=== PATIENT | female | born 1955 | race Caucasian/White ===

== ENCOUNTER → 2020-07-06 09:18 | Outpatient (BNVA) | payer OTHER, SELFPAY | PROVIDERS: Family Provider Family Medicine; Visit Provider Nurse Practitioner Family | DX: I10 Essential (primary) hypertension (principal); F41.1 Generalized anxiety disorder; F41.9 Anxiety disorder, unspecified; E78.5 Hyperlipidemia, unspecified | CPT/HCPCS: 80053; 80061 ==

== ENCOUNTER → 2021-05-03 09:55 | Outpatient (BNVA) | payer OTHER, SELFPAY | PROVIDERS: Family Provider Family Medicine; Visit Provider Nurse Practitioner Family | DX: I10 Essential (primary) hypertension (principal); F41.1 Generalized anxiety disorder; J32.9 Chronic sinusitis, unspecified; F41.9 Anxiety disorder, unspecified | CPT/HCPCS: 80053; 80061 ==

== ENCOUNTER → 2021-08-29 00:01 | Outpatient (BNVA) | payer OTHER, SELFPAY | PROVIDERS: Family Provider Family Medicine; Visit Provider Nurse Practitioner Family | DX: Z20.822 Contact with and (suspected) exposure to COVID-19 (principal); R05.9 Cough, unspecified | CPT/HCPCS: 87635 ==

== ENCOUNTER 2022-05-10 17:15 | Observation (INO) | payer MEDICARE, OTHER, SELFPAY ==
[2022-05-10 17:30] VITALS: BP 201/93; PULSE 76; RESP 18; TEMP 36.8; O2SAT 95
--- NOTE | 2022-05-10 17:40 | XR_ITS ---
WS: [id number] Portable AP upright chest, 05/10/2022 Clinical Data: throat sensation Comparison: None. Findings: No nodules, masses or effusions are seen. The heart is normal. The pulmonary vascularity is not increased. No pneumonia or pneumothorax is seen. The aortic arch and descending thoracic aorta s how mild tortuosity. The patient's clothing obscures minimal detail over the central chest. There is an old right third rib fracture. XR/XR chest 1V portable [id number] Impression: Atherosclerosis.
--- NOTE | 2022-05-10 21:40 | ED_ITS ---
HPI - General Adult General: Chief complaint: General Medical Stated complaint: Object in throat Time Seen by Provider: 05/10/22 21:36 History of Present Illness: 66-year-old female comes in today with probable esophageal obstruction due to meat. Patient yesterday at lunchtime she was eating a piece of meat and she felt a become lodged in her esophagus. Since then patient has been unable to swallow or hold down any fluids. Patient feels that there is an obstruction. Patient has had prior episodes where she has had difficulty swallowing but most often it goes down on its own. Patient had talked to her primary care provider who recommended she be evaluated in the ER with suspicion of obstruction of the esophagus due to food bolus. Review of Systems General: Reports: 10 or more systems reviewed and unremarkable except in HPI and below ENMT: Reports: other (difficulty swallowing) [facility] ED PFSH: Medical History Anxiety HTN (hypertension) Family History Father Hypertension CAD (coronary artery disease) Social History Smoking and tobacco status: never smoked Second hand smoke exposure: No Physical Exam Const: COMMON NORMALS: alert HENMT: COMMON NORMALS: normocephalic HEAD & SCALP: normocephalic Neck/C-Spine: COMMON NORMALS: full ROM Chest: COMMONS NORMALS: normal inspection of the chest Resp: COMMON NORMALS: normal respiratory effort and clear to auscultation bilaterally AUSCULTATION: clear to auscultation bilaterally Cardio: COMMON NORMALS: regular rate and regular rhythm RATE: regular rate RHYTHM: regular rhythm GI: COMMON NORMALS: Soft to palpation and non-tender PALPATION: Yes Soft to palpation : BLADDER/KIDNEY EXAM: Yes bladder normal to palpation BIMANUAL EXAM - VAGINA & UTERUS: Yes bladder normal to palpation Back/Pelvis: COMMON NORMALS: thoracic and lumbar spine normal to inspection Extremity: COMMON NORMALS: full ROM Neuro: SENSORIUM/ORIENTATION: Yes alert Skin: COMMON NORMALS: turgor normal GENERAL SKIN EXAM: turgor normal Course ED course: 2154, discussed patient with Dr. Wells, attending ER physician, who recommend I go ahead and talk to Dr. Lazar, general surgeon. Dr. Lazar recommended imaging to evaluate for obstruction and to admit for observation and he will evaluate in the morning as long as patient is stable with no signs of airway obstruction and management of secretions. 2304, trial of glucagon was unsuccessful patient continues to feel like there is an obstruction in her distal esophagus, was able to drink some water but then after some time she regurgitated it. Laboratory values were unremarkable. Except for some elevation in white blood cell count of 13.4. We are awaiting CT report. 0001, viewed CT with patient which showed hiatal hernia with possible retained food products or neoplasm/mass with recommendations of further evaluation with endoscopy. Patient reported understanding of care plan and need for further surgical evaluation with endoscopy. Patient will be placed in observation until surgical eval. Vital Signs: Vital signs: Vital Signs Temperature 98.2 F 05/10/22 17:30 Pulse Rate 74 05/10/22 22:01 Respiratory Rate 15 05/10/22 22:01 Blood Pressure 160/86 05/10/22 22:01 Pulse Oximetry 95 05/10/22 22:01 Oxygen Delivery Me thod 05/10/22 22:01 MDM - General Adult Medical Decision Making 66-year-old female comes in today for complaints of difficulty swallowing and holding down food. Patient stated yesterday she had eaten some chopped steak and since then has felt like there has been something lodged in her distal esophagus. On exam abdomen soft nontender. Patient is managing secretions well. Vital signs are normal except for some elevation in blood pressure. Differential diagnosis includes foreign body in the esophagus, ruptured esophagus, hiatal hernia. Laboratory values were unremarkable except for some mild leukocytosis at 13,000. CT of the abdomen pelvis noted a paraesophageal hiatal hernia with inflammation and possible retained food or neoplasm. I reviewed the patient with Dr. Lazar who agreed to evaluate patient in the morning for possible surgical endoscopy. Dr. Wells was consulted and agreed with plan. Lab Data : 05/10/22 22:15 05/10/22 22:15 Radiology Impressions Chest/Abdomen/Pelvis CT 05/10/22 21:53 IMPRESSION: A small paraesophageal hiatal hernia with eccentric wall thickening at the gastroesophageal junction. While this may simply represent the esophagus adjacent to the herniated stomach, wall thickening secondary to neoplasm or small piece of retained food contents may present a similar picture. Given the patient's symptoms and the presence of multiple mediastinal lymph nodes (although normal in size and mildly enlarged), consider endoscopy if clinically indicated. IMPRESSION: 1. No acute findings. 2. A small paraesophageal hiatal hernia as discussed in the concomitant CT scan of the chest of 05/10/2022. 3. Hepatic steatosis. 4. Mild descending colon and sigmoid diverticulosis without acute diverticulitis. 6. Additional non emergent findings as above COMMENTS: Consistent with the [employer] [place] [employer]'s Incidental Findings Committee white paper (J Am Luisito Radiol 2018): Any incidental renal lesion less than 1 cm or classified as too small to characterize, or any incidental cystic renal lesion characterized as simple-appearing, is likely benign. No follow-up imaging is recommended for these lesions per consensus recommendations based on imaging criteria. ADDENDUM: 05/10/22 2358 Findings were discussed with MARISOL LITTLE at 05/10/2022 11:57 PM CDT. Laboratory Results WBC 13.4 10^3/uL (4.0-10.0) H 05/10/22 22:15 RBC 4.93 10^6/uL (4.1-5.3) 05/10/22 22:15 Hgb 15.1 g/dL (11.5-15.3) 05/10/22 22:15 Hct 44.8 % (37.0-47.0) 05/10/22 22:15 MCV 90.9 fl (81-99) 05/10/22 22:15 MCH 30.6 pg (28.0-34.0) 05/10/22 22:15 MCHC 33.7 g/dL (30.0-36.0) 05/10/22 22:15 RDW 13.6 % (12.1-15.1) 05/10/22 22:15 Plt Count 386 10^3/cmm (130-400) 05/10/22 22:15 MPV 9.7 fL (7.4-10.4) 05/10/22 22:15 Neut % (Auto) 68.5 % 05/10/22 22:15 Lymph % (Auto) 22.0 % 05/10/22 22:15 Rawl[place] % (Auto) 7.1 % 05/10/22 22:15 Eos % (Auto) 1.3 % 05/10/22 22:15 Baso % (Auto) 0.7 % 05/10/22 22:15 Neut # (Auto) 9.18 10^3/uL (1.8-7.7) H 05/10/22 22:15 Lymph # (Auto) 3.0 10^3/uL (0.8-4.8) 05/10/22 22:15 [place] # (Auto) 1.0 10^3/uL (0.2-0.9) H 05/10/22 22:15 Eos # (Auto) 0.2 10^3/uL (0.0-0.8) 05/10/22 22:15 Baso # (Auto) 0.1 10^3/uL (0.0-0.1) 05/10/22 22:15 Nucleated RBC % (auto) 0 % 05/10/22 22:15 Nucleated RBCs # 0.0 /100WBC 05/10/22 22:15 Sodium 143 mmol/L (136-145) 05/10/22 22:15 Potassium 3.5 mmol/L (3.5-5.1) 05/10/22 22:15 Chloride 103 mmol/L (98-107) 05/10/22 22:15 Carbon Dioxide 27 mmol/L (22-29) 05/10/22 22:15 Anion Gap 16.5 (5-19) 05/10/22 22:15 BUN 13 mg/dL (8-23) 05/10/22 22:15 Creatinine 0.8 mg/dL (0.5-0.9) 05/10/22 22:15 GFR Calculation 72.0 mL/min (90-130) L 05/10/22 22:15 Glucose 96 mg/dL (65-115) 05/10/22 22:15 Calculated Osmolality 296 mOsm/kg (285-295) H 05/10/22 22:15 Calcium 9.7 mg/dL (8.5-10.5) 05/10/22 22:15 Total Bilirubin 1.0 mg/dL (0.15-1.2) 05/10/22 22:15 AST 26 U/L (0-32) 05/10/22 22:15 ALT 26 U/L (0-33) 05/10/22 22:15 Alkaline Phosphatase 87 U/L (35-105) 05/10/22 22:15 Troponin T Gen 5 ng/L 10 ng/L (0-10) 05/10/22 22:15 Total Protein 8.6 g/dL (6.6-8.7) 05/10/22 22:15 Albumin 4.3 g/dL (3.5-5.2) 05/10/22 22:15 Globulin 4.3 g/dL (1.3-4.6) 05/10/22 22:15 Discharge Plan Discharge Condition: Stable Prescriptions: No Action hydrochlorothiazide 50 mg tablet 50 mg PO DAILY Qty: 90 1RF citalopram 20 mg tablet See Rx Instructions .ROUTE .COMPLEX Qty: 90 0RF Dose Instruction: Take 1 tablet by mouth once daily Rx Instructions: Take 1 tablet by mouth once daily Referrals: James Garcia MD [Primary Care Provider] - Coding Level of Care Code ED Personnel Clerks Supervisor for Chg Fwd Exam Comprehensive
--- NOTE | 2022-05-10 21:53 | CTR_ITS ---
PROCEDURE INFORMATION: Exam: CT Chest With Contrast; Diagnostic Exam date and time: 05/10/2022 10:19 PM Age: 66 years old Clinical indication: Other: Foreign body; Prior surgery; Surgery type: Hysterectomy; Patient HX: Patient states feels like there is a piece of food stuck in distal esophagus. Unable to keep anything down. ; Additional info: Esophageal foreign body TECHNIQUE: Imaging protocol: Diagnostic computed tomography of the chest with contrast. Radiation optimization: All CT scans at this facility use at least one of these dose optimization techniques: automated exposure control; mA and/or kV adjustment per patient size (includes targeted exams where dose is matched to clinical indication); or iterative reconstruction. Contrast material: OMNI 350; Contrast volume: 80 ml; Contrast route: INTRAVENOUS (IV); COMPARISON: CR XR chest 1V portable [id number] 05/10/2022 9:41 PM RADIATION DOSE METRICS: Total DLP (mGy-cm): 798.73 FINDINGS: Lungs: There is no focal pulmonary consolidation. No lung masses are identified. Pleural spaces: Unremarkable. No pneumothorax. No pleural effusion. Heart: There are no pericardial fluid collections. Esophagus: No esophageal thickening. Mediastinal space: See Diaphragm finding. Lymph nodes: There are multiple nonenlarged and borderline prominent mediastinal lymph nodes, as large as 12 mm. This 12 mm lymph node in the aortopulmonary window, is abutting the anterolateral aspect of the esophagus. The bilateral hilar normal size and borderline prominent lymph nodes as large as 10 mm. Vasculature: Unremarkable. No aortic aneurysm. Diaphragm: There is a small paraesophageal hiatal hernia. There is no esophageal dilatation or evidence of obstruction. However, there is eccentric thickening of the wall of the herniated gastroesophageal junction (series 3, image 53; series 7, images 28 and 29; series 8, images 32 - 35). Liver: No enhancing masses are seen. Bones/joints: Unremarkable. No acute fracture. Soft tissues: Unremarkable. PROCEDURE INFORMATION: Exam: CT Abdomen And Pelvis With Contrast Exam date and time: 05/10/2022 10:19 PM Age: 66 years old Clinical indication: Other: Foreign body; Prior surgery; Surgery type: Hysterectomy; Patient HX: Patient states feels like there is a piece of food stuck in distal esophagus. Unable to keep anything down. ; Additional info: Esophageal foreign body TECHNIQUE: Imaging protocol: Computed tomography of the abdomen and pelvis with contrast. Radiation optimization: All CT scans at this facility use at least one of these dose optimization techniques: automated exposure control; mA and/or kV adjustment per patient size (includes targeted exams where dose is matched to clinical indication); or iterative reconstruction. Contrast material: OMNI 350; Contrast volume: 80 ml; Contrast route: INTRAVENOUS (IV); COMPARISON: CR XR chest 1V portable [id number] 05/10/2022 9:41 PM RADIATION DOSE METRICS: Total DLP (mGy-cm): 798.73 FINDINGS: Lungs: No consolidation in the visualized lung bases. Diaphragm: There is a small paraesophageal hiatal hernia with eccentric wall thickening as described on the concomitant CT scan of the chest of 05/10/2022. Liver: The liver is normal in size. There is a patent steatosis. Gallbladder and bile ducts: No calcified stones. No ductal dilation. Pancreas: Normal in size and homogeneous enhancement. No ductal dilation. Spleen: Normal. No splenomegaly. Adrenal glands: Normal. No mass. Kidneys and ureters: There is no hydronephrosis. No renal or ureteral calculi are identified. In the right kidney, there is a 13 mm simple appearing cyst. Stomach and bowel: There is no evidence of small bowel or colonic obstruction. There is mild diverticulosis of the distal colon without acute diverticulitis. Appendix: A normal retrocecal appendix is identified. Intraperitoneal space: No free air. No significant fluid collection. Vasculature: There is mild atherosclerotic calcification of the abdominal aorta and its branches without aneurysm Lymph nodes: No enlarged retroperitoneal or mesenteric lymph nodes. Urinary bladder: The bladder is mostly decompressed. No bladder stones are identified. Reproductive: The uterus is not identified and is likely surgically absent or atrophic. Bones/joints: At L2-L3, there are severe degenerative disc disease, anterior and lateral osteophytes and posterior bony whiskering with moderate bilateral neural foraminal narrowing. Soft tissues: Normal. CT/CT chest abd pel w con* IMPRESSION: A small paraesophageal hiatal hernia with eccentric wall thickening at the gastroesophageal junction. While this may simply represent the esophagus adjacent to the herniated stomach, wall thickening secondary to neoplasm or small piece of retained food contents may present a similar picture. Given the patient's symptoms and the presence of multiple mediastinal lymph nodes (although normal in size and mildly enlarged), consider endoscopy if clinically indicated. IMPRESSION: 1. No acute findings. 2. A small paraesophageal hiatal hernia as discussed in the concomitant CT scan of the chest of 05/10/2022. 3. Hepatic steatosis. 4. Mild descending colon and sigmoid diverticulosis without acute diverticulitis. 6. Additional non emergent findings as above COMMENTS: Consistent with the [place] [employer]'s Incidental Findings Committee white paper (J Am Luisito Radiol 2018): Any incidental renal lesion less than 1 cm or classified as too small to characterize, or any incidental cystic renal lesion characterized as simple-appearing, is likely benign. No follow-up imaging is recommended for these lesions per consensus recommendations based on imaging criteria.
[2022-05-10 21:58] VITALS: BP 185/99; PULSE 76; RESP 15; O2SAT 96
[2022-05-10 22:01] VITALS: BP 160/86; PULSE 74; RESP 15; O2SAT 95
[2022-05-10] MEDS: sodium chloride 0.9% 500 ML 999 ML IV (22:11)
--- NOTE | 2022-05-10 22:15 | PC.NURSE ---
Patient alert/oriented, vss, reports feeling something stuck in esophagus since yesterday, able to swallow own secretions, talking without difficulty. and daughter at bedside.
[2022-05-10 22:23] LABS: Basophils # 0.1 10^3/uL (0.0-0.1); Basophils % 0.7 %; Eosinophils # 0.2 10^3/uL (0.0-0.8); Eosinophils % 1.3 %; Hematocrit 44.8 % (37.0-47.0); Hemoglobin 15.1 g/dL (11.5-15.3); Mean Corpuscular HGB Conc 33.7 g/dL (30.0-36.0); Mean Corpuscular Hemoglobin 30.6 pg (28.0-34.0); Mean Corpuscular Volume 90.9 fl (81-99); Mean Platelet Volume 9.7 fL (7.4-10.4); Monocytes % 7.1 %; Neutrophils # 9.18 10^3/uL (1.8-7.7); Neutrophils % 68.5 %; Nucleated Red Blood Cells % 0 %; Platelet Count 386 10^3/cmm (130-400); Red Blood Count 4.93 10^6/uL (4.1-5.3); Red Cell Distribution Width 13.6 % (12.1-15.1); White Blood Count 13.4 10^3/uL (4.0-10.0)
[2022-05-10] MEDS: iohexol 350 mg/mL 100 mL Btl IV (22:26)
[2022-05-10 22:38] LABS: Alanine Aminotransferase 26 U/L (0-33); Albumin Level 4.3 g/dL (3.5-5.2); Alkaline Phosphatase 87 U/L (35-105); Anion Gap 16.5 (5-19); Aspartate Amino Transferase 26 U/L (0-32); Blood Urea Nitrogen 13 mg/dL (8-23); Calcium 9.7 mg/dL (8.5-10.5); Carbon Dioxide 27 mmol/L (22-29); Chloride 103 mmol/L (98-107); Creatinine Clr Calc Pharmacy 71.0277; Globulin 4.3 g/dL (1.3-4.6); Glucose 96 mg/dL (65-115); Osmolality Calculated 296 mOsm/kg (285-295); Potassium 3.5 mmol/L (3.5-5.1); Sodium 143 mmol/L (136-145); Total Protein 8.6 g/dL (6.6-8.7)
[2022-05-10 22:39] LABS: Troponin T (5th) Once 10 ng/L (0-10)
--- NOTE | 2022-05-10 23:00 | ECG_ITS ---
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 Measurements Intervals [place] Rate: 72 P: -4 [place]: 136 QRS: 30 QRSD: 85 T: 60 QT: 289 QTc: 317 Interpretive Statements SINUS RHYTHM NONSPECIFIC ST & T-WAVE ABNORMALITY No previous ECG available for comparison Electronically Signed On 05-12-2022 14:36:38 CDT by Familia Donnelly M.D. [id number]
[2022-05-11 00:57] VITALS: BP 134/66; PULSE 77; RESP 20; O2SAT 96
[2022-05-11] MEDS: ondansetron 2 mg/ML SDV 2 mL 4 MG IVP (01:19)
[2022-05-11] MEDS: sodium chloride 0.9% 1,000 ML 75 ML IV (01:25)
[2022-05-11 01:48] VITALS: BMI 23.5
[2022-05-11 10:05] VITALS: BP 170/85; PULSE 75; RESP 16; TEMP 36.3; O2SAT 96
[2022-05-11] MEDS: sodium chloride 0.9% 1,000 ML 30 ML IV (10:21)
[2022-05-11 10:46] VITALS: O2SAT 96
--- NOTE | 2022-05-11 11:08 | ANES.PREANE2 ---
Pre-Anesthetic Assessment Height/Weight: Height 1.7 m Weight 68.039 kg Temp Pulse Resp BP Pulse Ox O2 Del Method 97.4 F L 75 16 170/85 96 05/11/22 10:05 05/11/22 10:05 05/11/22 10:05 05/11/22 10:05 05/11/22 10:46 05/11/22 10:46 Preop Diagnosis: possible foreign body Operation Date: 05/11/22 10:15 Proposed Procedures p EGD WITH POSSIBLE FOREIGN BODY REMOVAL(Not Applicable) - Julian Lazar DO Last intake: Intake Last Liquid Date 05/10/22 Last Liquid Time 00:00 Last Solid Date 05/09/22 Last Solid Time 12:00 Social No alcohol and No tobacco Exam alert, oriented x 3, clear to auscultation bilaterally and regular rate & rhythm Airway Submandibular: within normal limits Cervical ROM: within normal limits Mallampati: Class II Dentition: other (dentures, removed) History/ROS No significant history except as noted Pulmonary None reported CV/HEM Hypertension cardiology workup 5 years ago - cleared None reported Hepatic None reported GI Hiatal Hernia Metabolic None reported Musc/skel None reported Neuropsych Anxiety Anesthetic Plan ASA status: 2 Anesthesia: Anesthesia Evaluation and General Risk of > 500 ml blood loss (7ml/kg in children): Yes, adequate IV access and fluids planned Medications/Allergies Home Medications Medication Instructions Recorded Confirmed Last Taken Type hydrochlorothiazide 50 mg tablet 50 mg PO DAILY #90 tabs 05/03/21 05/11/22 Unknown Rx citalopram 20 mg tablet See Rx Instructions .Route 12/08/21 05/11/22 Unknown Rx .COMPLEX #90 tabs Allergies Allergy/AdvReac Type Severity Reaction Status Date / Time No Known Allergies Allergy Verified 05/10/22 15:31 Current Medications Generic Name Dose Route Start Last Admin Trade Name Joseq PRN Reason Stop Dose Admin Sodium Chloride 1,000 mls @ 75 mls/hr 05/11/22 00:57 05/11/22 01:25 Sodium Chloride 0.9% IV 75 mls/hr .[id number] VAL Administration Sodium Chloride 1,000 mls @ 30 mls/hr 05/11/22 10:15 05/11/22 10:21 Sodium Chloride 0.9% IV 05/12/22 10:14 30 mls/hr .Q24H VAL Administration Ondansetron HCl 4 mg 05/11/22 00:57 05/11/22 01:19 Ondansetron 2 Mg/Ml Sdv 2 Ml IVP 4 mg Q6H PRN Administration NAUSEA AND VOMITING PFSH Anesthesia Medical History Anxiety HTN (hypertension) Family History Father Hypertension CAD (coronary artery disease) Social History Smoking and tobacco status: never smoked Second hand smoke exposure: No Data Anesthesia : 05/10/22 22:15 05/10/22 22:15 Short CBC 05/10/22 Range/Units 22:15 WBC 13.4 H (4.0-10.0) 10^3/uL Hgb 15.1 (11.5-15.3) g/dL Hct 44.8 (37.0-47.0) % MCV 90.9 (81-99) fl Plt Count 386 (130-400) 10^3/cmm Neut % (Auto) 68.5 % Neut # (Auto) 9.18 H (1.8-7.7) 10^3/uL BMP 05/10/22 22:15 Sodium 143 Potassium 3.5 Chloride 103 Carbon Dioxide 27 BUN 13 Creatinine 0.8 Glucose 96 Calcium 9.7 Cardiac Enzymes 05/10/22 Range/Units 22:15 Troponin T Gen 5 ng/L 10 (0-10) ng/L Liver Function 05/10/22 Range/Units 22:15 Total Bilirubin 1.0 (0.15-1.2) mg/dL AST 26 (0-32) U/L ALT 26 (0-33) U/L Alkaline Phosphatase 87 (35-105) U/L Albumin 4.3 (3.5-5.2) g/dL Cardiac Studies: No Data to Display
--- NOTE | 2022-05-11 11:09 | PM.HP ---
Providers/Chief Complaint Admitting Physician: Julian Lazar DO Primary Care Provider: James Garcia MD Chief Complaint: Object in throat History of Present Illness Luisana Torres is a 66 year old female who presented to the hospital 36 hours after eating steak for lunch and having feeling of it being stuck in the bottom of her throat. She reports that she gets this feeling about every 3 months and that usually she can just vomited up. However that did not happen this time. She has some mild epigastric sharp pain that radiates through to her back. Nothing seems to make the pain better or worse. She has been able to keep down her saliva. She had a CT which showed possible object versus just inflammation of the GE junction along with a paraesophageal hernia containing stomach. She denies any nausea or vomiting. Denies any diarrhea or constipation. Denies any hematochezia and/or melena. Review of Systems General: Reports: 10 or more systems reviewed and unremarkable except in HPI and below Medications/Allergies Home Medications Medication Instructions Recorded Confirmed Last Taken Type hydrochlorothiazide 50 mg tablet 50 mg PO DAILY #90 tabs 05/03/21 05/11/22 Unknown Rx citalopram 20 mg tablet See Rx Instructions .Route 12/08/21 05/11/22 Unknown Rx .COMPLEX #90 tabs Allergies Allergy/AdvReac Type Severity Reaction Status Date / Time No Known Allergies Allergy Verified 05/10/22 15:31 PFSH Acute PFSH: Medical History Anxiety HTN (hypertension) Family History Father Hypertension CAD (coronary artery disease) Social History Smoking and tobacco status: never smoked Second hand smoke exposure: No Vitals/I&O/Wt Last Vital Signs Temp 97.4 F L 05/11/22 10:05 Pulse 75 05/11/22 10:05 Resp 16 05/11/22 10:05 BP 170/85 05/11/22 10:05 Pulse Ox 96 05/11/22 10:46 O2 Del Method 05/11/22 10:46 05/10/22 05/11/22 05/11/22 22:59 06:59 14:59 Intake Total 500 / 500 Balance 500 / 500 Weight last 48 hrs Weight 150 lb Weight 150 lb Physical Exam Narrative: General : Patient is well developed , no acute distress, oriented x3 Head : Normal cephalic, a-traumatic. Ears : Pinnae and external canal are normal. Hearing is normal. Eyes : PERRLA, Sclera and injection are normal. No conjunctival discharge. Nose : Mucous membranes are without erythema. Throat : buccal mucosa is normal, gums are without significant recession or hypertrophy. Lungs : Equal chest rise bilaterally, no use of accessory muscles, trachea is midline. Cor : Rate and rhythm are normal. Abdomen : Soft, ND, NT, no g/r/m Extremities : No edema, no cyanosis or clubbing, dorsalis pedis pulses are present bilaterally, non-tender to palpation of calves. Upper extremities are normal bilaterally. Back : non-tender to palpation, no CVA tenderness. Neuro : CN II - XII intact, Upper and lower extremities have equal and full strength Data : 05/10/22 22:15 05/10/22 22:15 A&P Assessment and plan (1) Food impaction of esophagus: Status: Acute Qualifiers: Encounter type: initial encounter Qualified Code(s): T18.128A - Food in esophagus causing other injury, initial encounter (2) Hiatal hernia without gangrene and obstruction: Status: Acute Plan EGD The risks and benefits of the procedure, including bleeding, infection, intestinal perforation requiring surgery, missed lesion, or explained to the patient. She is understanding of the risks and wishes to proceed. Attestations Medical Necessity Statement*: Patient may be discharged home after the procedure. Depends on the results of the procedure. 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
[2022-05-11 12:26] VITALS: BP 175/83; PULSE 93; RESP 16; TEMP 36.6; O2SAT 96
[2022-05-11 12:37] VITALS: BP 147/80; PULSE 85; RESP 16; O2SAT 96
--- NOTE | 2022-05-11 12:44 | P.DS_ITS ---
Discharge Providers Date of Admission: 05/11/22 00:00 Date of Discharge: May 11, 2022 Attending Provider at Admission: Julian Lazar DO Attending Provider at Discharge: Julian Lazar DO Primary Care Provider: James Garcia MD Diagnoses at Discharge Discharge Diagnosis (1) Food impaction of esophagus: Status: Acute Qualifiers: Encounter type: initial encounter Qualified Code(s): T18.128A - Food in esophagus causing other injury, initial encounter (2) Hiatal hernia without gangrene and obstruction: Status: Acute Reason for Visit Reason for Visit: Object in throat Hospital Course Hospital Course Patient came in for food impaction 36 hours after eating steak. EGD was performed and no impaction was seen. Biopsy was taken of an inflamed GE junction. She was discharged home in good condition. Physical Exam Narrative: Gen: NAD Abd: S, NT, ND Discharge Data Studies Completed and Pending Completed Studies During Hospitalization Category Date Time Status CT chest abd pel w con* Stat Cat Scan 05/10/22 21:53 Completed XR chest 1V portable [id number] Stat Exams 05/10/22 17:40 Completed Pending at discharge Category Date Time Status Pathology: Surgical [PTH] Routine Pth 05/11/22 12:23 Ordered Radiology Impressions Chest X-Ray 05/10/22 17:40 Impression: Atherosclerosis. Chest/Abdomen/Pelvis CT 05/10/22 21:53 IMPRESSION: A small paraesophageal hiatal hernia with eccentric wall thickening at the gastroesophageal junction. While this may simply represent the esophagus adjacent to the herniated stomach, wall thickening secondary to neoplasm or small piece of retained food contents may present a similar picture. Given the patient's symptoms and the presence of multiple mediastinal lymph nodes (although normal in size and mildly enlarged), consider endoscopy if clinically indicated. IMPRESSION: 1. No acute findings. 2. A small paraesophageal hiatal hernia as discussed in the concomitant CT scan of the chest of 05/10/2022. 3. Hepatic steatosis. 4. Mild descending colon and sigmoid diverticulosis without acute diverticulitis. 6. Additional non emergent findings as above COMMENTS: Consistent with the [employer]'s Incidental Findings Committee white paper (J Am Luisito Radiol 2018): Any incidental renal lesion less than 1 cm or classified as too small to characterize, or any incidental cystic renal lesion characterized as simple-appearing, is likely benign. No follow-up imaging is recommended for these lesions per consensus recommendations based on imaging criteria. ADDENDUM: 05/10/22 2358 Findings were discussed with MARISOL LITTLE at 05/10/2022 11:57 PM CDT. Laboratory Results WBC 13.4 10^3/uL (4.0-10.0) H 05/10/22 22:15 RBC 4.93 10^6/uL (4.1-5.3) 05/10/22 22:15 Hgb 15.1 g/dL (11.5-15.3) 05/10/22 22:15 Hct 44.8 % (37.0-47.0) 05/10/22 22:15 MCV 90.9 fl (81-99) 05/10/22 22:15 MCH 30.6 pg (28.0-34.0) 05/10/22 22:15 MCHC 33.7 g/dL (30.0-36.0) 05/10/22 22:15 RDW 13.6 % (12.1-15.1) 05/10/22 22:15 Plt Count 386 10^3/cmm (130-400) 05/10/22 22:15 MPV 9.7 fL (7.4-10.4) 05/10/22 22:15 Neut % (Auto) 68.5 % 05/10/22 22:15 Lymph % (Auto) 22.0 % 05/10/22 22:15 [place] % (Auto) 7.1 % 05/10/22 22:15 Eos % (Auto) 1.3 % 05/10/22 22:15 Baso % (Auto) 0.7 % 05/10/22 22:15 Neut # (Auto) 9.18 10^3/uL (1.8-7.7) H 05/10/22 22:15 Lymph # (Auto) 3.0 10^3/uL (0.8-4.8) 05/10/22 22:15 [place] # (Auto) 1.0 10^3/uL (0.2-0.9) H 05/10/22 22:15 Eos # (Auto) 0.2 10^3/uL (0.0-0.8) 05/10/22 22:15 Baso # (Auto) 0.1 10^3/uL (0.0-0.1) 05/10/22 22:15 Nucleated RBC % (auto) 0 % 05/10/22 22:15 Nucleated RBCs # 0.0 /100WBC 05/10/22 22:15 Sodium 143 mmol/L (136-145) 05/10/22 22:15 Potassium 3.5 mmol/L (3.5-5.1) 05/10/22 22:15 Chloride 103 mmol/L (98-107) 05/10/22 22:15 Carbon Dioxide 27 mmol/L (22-29) 05/10/22 22:15 Anion Gap 16.5 (5-19) 05/10/22 22:15 BUN 13 mg/dL (8-23) 05/10/22 22:15 Creatinine 0.8 mg/dL (0.5-0.9) 05/10/22 22:15 GFR Calculation 72.0 mL/min (90-130) L 05/10/22 22:15 Glucose 96 mg/dL (65-115) 05/10/22 22:15 Calculated Osmolality 296 mOsm/kg (285-295) H 05/10/22 22:15 Calcium 9.7 mg/dL (8.5-10.5) 05/10/22 22:15 Total Bilirubin 1.0 mg/dL (0.15-1.2) 05/10/22 22:15 AST 26 U/L (0-32) 05/10/22 22:15 ALT 26 U/L (0-33) 05/10/22 22:15 Alkaline Phosphatase 87 U/L (35-105) 05/10/22 22:15 Troponin T Gen 5 ng/L 10 ng/L (0-10) 05/10/22 22:15 Total Protein 8.6 g/dL (6.6-8.7) 05/10/22 22:15 Albumin 4.3 g/dL (3.5-5.2) 05/10/22 22:15 Globulin 4.3 g/dL (1.3-4.6) 05/10/22 22:15 Vitals Last Vital Signs Temp 97.8 F 05/11/22 12:26 Pulse 85 05/11/22 12:37 Resp 16 05/11/22 12:37 BP 147/80 05/11/22 12:37 Pulse Ox 96 05/11/22 12:37 O2 Del Method 05/11/22 12:37 Discharge Plan Discharge Patient Disposition: Home Condition: Stable Prescriptions: Continued hydrochlorothiazide 50 mg tablet 50 mg PO DAILY Qty: 90 1RF citalopram 20 mg tablet See Rx Instructions .ROUTE .COMPLEX Qty: 90 0RF Dose Instruction: Take 1 tablet by mouth once daily Rx Instructions: Take 1 tablet by mouth once daily Discharge Orders: Discharge Order (Routine); Ordered 05/11/22 Ordered By: Julian Lazar Referrals: Julian Lazar DO [Physician] - 2 weeks (tele in 2 weeks and office in one month) James Garcia MD [Primary Care Provider] - 4-7 days Discharge Diet: As Directed Discharge Activity: Resume usual activity Patient Instructions: GI Discharge Instructions, Opioid Safety Activity Restrictions/Additional Instructions: Liquid diet for 2 days and then no steak for 2 weeks Discharge Attestations Time Spent in Discharge Care*: less than 30 min Quality Metrics Clinical Quality Measures [ No reported AMI, CVA or VTE this stay] Coding Level of Care Code Acute Chg FW DC note Diagnoses Food impaction of esophagus T18.128A Encounter type: initial encounter Hiatal hernia without gangrene and obstruction K44.9
[2022-05-11 14:49] VITALS: BP 147/80; PULSE 85; RESP 16; O2SAT 96
== END 2022-05-11 15:00 | disposition home or self-care (01) ==
LOC: ER 21:40 → MEDSURG 05-11 00:15
PROVIDERS: Admitting Provider Surgery; Emergency Provider Nurse Practitioner Family; PCP Family Medicine; Visit Provider Surgery
PROC: 0DJ08ZZ Inspection of Upper Intestinal Tract, Via Natural or Artificial Opening Endoscopic (ICD-10-PCS; CPT 43235; principal; 2022-05-11 10:15)
DX: T18.128A Food in esophagus causing other injury, initial encounter (principal); K44.9 Diaphragmatic hernia without obstruction or gangrene; I10 Essential (primary) hypertension
CPT/HCPCS: 43239; 71045; 71260; 74177; 80053; 84484; 85025; 88305; 93005; 96361; 96374; 99285; G0378; J0330; J1100; J1610; J2405; J2704; J7030; J7040; Q9967

== ENCOUNTER → 2022-05-23 14:18 | Outpatient (BNVA) | payer MEDICARE, OTHER, SELFPAY | PROVIDERS: PCP Family Medicine; Visit Provider Surgery | DX: K21.9 Gastro-esophageal reflux disease without esophagitis (principal) | CPT/HCPCS: 99212 ==

== ENCOUNTER → 2022-06-05 07:45 | Outpatient (BNVA) | payer MEDICARE, OTHER, SELFPAY | PROVIDERS: PCP Nurse Practitioner Family; Visit Provider Surgery | DX: K21.9 Gastro-esophageal reflux disease without esophagitis (principal); T18.108A Unspecified foreign body in esophagus causing other injury, initial encounter; X58.XXXA Exposure to other specified factors, initial encounter | CPT/HCPCS: 99203 ==

== ENCOUNTER 2022-06-28 09:05 | Day surgery (SDC) | payer MEDICARE, OTHER, SELFPAY ==
[2022-06-26 11:37] VITALS: BMI 23.5
[2022-06-28 09:33] VITALS: BP 170/112; PULSE 72; RESP 18; TEMP 36.8; O2SAT 98
[2022-06-28] MEDS: sodium chloride 0.9% 1,000 ML 30 ML IV (09:50)
--- NOTE | 2022-06-28 11:33 | W.PM.OPSUD ---
Surgery/Procedure H&P Update DATE OF PROCEDURE: June 28, 2022 DATE H&P PERFORMED: 06/05/22 PREOP DIAGNOSIS: dysphagia PLANNED PROCEDURE: Operation Date: 06/28/22 10:45 Proposed Procedures p EGD Dilation W/ Balloon [id number],K21.9(Not Applicable) - Julian Lazar DO
--- NOTE | 2022-06-28 11:36 | ANES.PREANE2 ---
Pre-Anesthetic Assessment Height/Weight: Height 1.7 m Weight 68.039 kg Temp Pulse Resp BP Pulse Ox O2 Del Method 98.2 F 72 18 170/112 98 06/28/22 09:33 06/28/22 09:33 06/28/22 09:33 06/28/22 09:33 06/28/22 09:33 06/28/22 09:33 Preop Diagnosis: dysphagia Operation Date: 06/28/22 10:45 Proposed Procedures p EGD Dilation W/ Balloon 33212,K21.9(Not Applicable) - Julian Lazar DO Familial anesthetic complications: None Was Beta Tom taken within 24 hours: N/A Was Clonidine taken within 24 hours: N/A Last intake: Intake Last Liquid Date 06/27/22 Last Liquid Time 23:00 Last Solid Date 06/27/22 Last Solid Time 23:00 Social No alcohol and No tobacco Exam alert, oriented x 3, clear to auscultation bilaterally and regular rate & rhythm Airway Submandibular: within normal limits Cervical ROM: within normal limits Mallampati: Class II Dentition: false History/ROS No significant history except as noted Pulmonary None reported CV/HEM Hypertension None reported Hepatic None reported GI Gastroesophageal Reflux Disease Metabolic None reported Musc/skel None reported Neuropsych None reported Anesthetic Plan ASA status: 2 Anesthesia: Anesthesia Evaluation Risk of > 500 ml blood loss (7ml/kg in children): No Medications/Allergies Home Medications Medication Instructions Recorded Confirmed Last Taken Type lisinopril 5 mg tablet 5 mg PO DAILY #90 tabs 05/16/22 06/28/22 06/27/22 Rx hydrochlorothiazide 50 mg tablet 50 mg PO DAILY #90 tabs 05/19/22 06/28/22 06/27/22 Rx pantoprazole 40 mg tablet,delayed 40 mg PO BID 6 weeks #84 tabs 05/23/22 06/28/22 06/27/22 Rx release (Protonix) citalopram 20 mg tablet 20 mg PO DAILY 06/26/22 06/28/22 06/27/22 History Allergies Allergy/AdvReac Type Severity Reaction Status Date / Time No Known Allergies Allergy Verified 06/28/22 09:31 Current Medications Generic Name Dose Route Start Last Admin Trade Name Freq PRN Reason Stop Dose Admin Sodium Chloride 1,000 mls @ 30 mls/hr 06/28/22 09:30 06/28/22 09:50 Sodium Chloride 0.9% IV 06/29/22 09:29 30 mls/hr .Q24H VAL Administration PFSH Anesthesia Medical History Anxiety GERD (gastroesophageal reflux disease) HTN (hypertension) Family History Father Hypertension CAD (coronary artery disease) Social History Smoking and tobacco status: never smoked Second hand smoke exposure: No Data Anesthesia Cardiac Studies: No Data to Display
--- NOTE | 2022-06-28 11:52 | PC.NURSE ---
BALLOON DIALTAION 18, 19 AND 20
[2022-06-28 11:57] VITALS: BP 134/75; PULSE 76; RESP 18; TEMP 36.2; O2SAT 97
[2022-06-28 12:09] VITALS: BP 126/79; PULSE 60; RESP 18; TEMP 36.3; O2SAT 95
--- NOTE | 2022-06-28 17:44 | ANE.PACU2 ---
Inpatient post-anesthesia follow up: Airway intact: Yes Vital signs: Temperature 97.3 F Pulse Rate 60 Respiratory Rate 18 Blood Pressure 126/79 Pulse Oximetry 95 Oxygen Delivery Me thod Room Air Oxygen Flow Rate Fraction of Inspir ed Oxygen Hydration adequate: Yes Nausea and vomiting: No Pain level: 1 Mental status: Baseline
== END 2022-06-28 12:30 | disposition home or self-care (01) ==
PROVIDERS: PCP Nurse Practitioner Family; Visit Provider Surgery
DX: K21.9 Gastro-esophageal reflux disease without esophagitis (principal); K29.50 Unspecified chronic gastritis without bleeding; B96.81 Helicobacter pylori [H. pylori] as the cause of diseases classified elsewhere; K22.2 Esophageal obstruction; K44.9 Diaphragmatic hernia without obstruction or gangrene
CPT/HCPCS: 43239; 43249; 88305; J2704; J7030

== ENCOUNTER → 2022-07-11 15:35 | Outpatient (BNVA) | payer MEDICARE, OTHER, SELFPAY | PROVIDERS: PCP Nurse Practitioner Family; Visit Provider Surgery | DX: Z09 Encounter for follow-up examination after completed treatment for conditions other than malignant neoplasm (principal); K29.70 Gastritis, unspecified, without bleeding; B96.81 Helicobacter pylori [H. pylori] as the cause of diseases classified elsewhere | CPT/HCPCS: 99212 ==

== ENCOUNTER → 2023-01-05 10:10 | Outpatient (BNVA) | payer MEDICARE, OTHER, SELFPAY | PROVIDERS: PCP Nurse Practitioner Family; Visit Provider Nurse Practitioner Family | DX: I10 Essential (primary) hypertension (principal); L03.90 Cellulitis, unspecified | CPT/HCPCS: 80053; 80061 ==

== ENCOUNTER → 2023-03-07 11:28 | Outpatient (BNVA) | payer MEDICARE, OTHER, SELFPAY | PROVIDERS: PCP Nurse Practitioner Family; Visit Provider Nurse Practitioner Family | DX: J02.9 Acute pharyngitis, unspecified (principal) | CPT/HCPCS: 87880 ==

== ENCOUNTER → 2023-10-16 15:46 | Outpatient (BNVA) | payer MEDICARE, OTHER, SELFPAY | PROVIDERS: PCP Nurse Practitioner Family; Visit Provider Nurse Practitioner Family | DX: I10 Essential (primary) hypertension (principal) | CPT/HCPCS: 80053; 80061 ==

== ENCOUNTER → 2024-06-11 11:02 | Outpatient (BNVA) | payer MEDICARE, OTHER, SELFPAY | PROVIDERS: PCP Nurse Practitioner Family; Visit Provider Nurse Practitioner Family | DX: I10 Essential (primary) hypertension (principal) | CPT/HCPCS: 80053; 80061 ==

== ENCOUNTER 2025-03-27 19:12 | Day surgery (SDC) | payer MEDICARE, OTHER, SELFPAY ==
[2025-03-27] VITALS (18 sets, daily range): BP systolic 121–192; BP diastolic 61–108; PULSE 61–93; RESP 16–18; TEMP 36.1–36.7; O2SAT 91–98; BMI 23.1
--- OUTSIDE RECORDS SUMMARY | 2025-03-27 19:19 | XMS_ITS | Encounter Summary ---
Author Organization [facility] Address [address] [place]: [place] [address] Care Team Providers Care Master Sheet Clerk Name Role Phone Anh Miles MD Primary Care Provider Encounter Details Date Type Department Care Team (Late st Contact Info) Description 09/26/2001 Outpatient Historical Edgar Stoddard MD [address] [facility] [address] [place] [phone] Social History Tobacco Use Types Packs/Day Years Used Date Smoking Tobacco: Never Assessed Comments Unknown Sex and Gender Information Value Date Recorded Sex Assigned at Not on file Legal Sex Female 3:11 AM BUSINESS LIAISON OFFICER Gender Identity Not on file Sexual Orientation Not on file documented as of this encounter Plan of Treatment Not on file documented as of this encounter Visit Diagnoses Not on filedocumented in this encounter Care Teams Master Sheet Clerk Relationship Specialty Start Date End Date Anh Miles MD [address] [facility] [address] [place] [address] PCP - General Family Practice 09/22/13 documented as of this encounter
--- OUTSIDE RECORDS SUMMARY | 2025-03-27 19:19 | XMS_ITS | Encounter Summary ---
Author Organization [facility] Address [address] [place] [address] Care Team Providers Care Multiple Spindle Screw Machine Operator Name Role Phone Anh Miles MD Primary Care Provider [phone] Encounter Details Date Type Department Care Team (Latest Contact Info) Description 11/20/[address] [facility] Cardiology- [place] [address] [place] [address] HYPERTENSION NOS (Primary Dx) Social History Tobacco Use Types Packs/Day Years Used Date Smoking Tobacco: Never Assessed Comments Unknown Sex and Gender Information Value Date Recorded Sex Assigned at Not on file Legal Sex Female 3:11 AM MEDICAL REVIEW COORDINATOR Gender Identity Not on file Sexual Orientation Not on file documented as of this encounter Plan of Treatment Not on file documented as of this encounter Visit Diagnoses Diagnosis Unspecified essential hypertension- Primary documented in this encounter Care Teams Multiple Spindle Screw Machine Operator Relationship Specialty Start Date End Date Anh Miles MD [address] [facility] [address] [place] [address] PCP - General Family Practice 09/22/13 documented as of this encounter
--- OUTSIDE RECORDS SUMMARY | 2025-03-27 19:19 | XMS_ITS | Encounter Summary ---
Author Organization [facility] Address [address] [place] [address] Care Team Providers Care Infection Preventionist Name Role Phone Anh Miles MD Primary Care Provider Encounter Details Date Type Department Care Team (Latest Contact Info) Description 03/28/2002 Outpatient Historical [facility] [address] [place] [phone] ELB/FOREARM/WRST INJURY NOS (Primary Dx) Social History Tobacco Use Types Packs/Day Years Used Date Smoking Tobacco: Never Assessed Comments Unknown Sex and Gender Information Value Date Recorded Sex Assigned at Not on file Legal Sex Female 3:11 AM CRYOGENIC TRANSPORT DRIVER Gender Identity Not on file Sexual Orientation Not on file documented as of this encounter Plan of Treatment Not on file documented as of this encounter Visit Diagnoses Diagnosis Injury, other and unspecified, elbow, forearm, and wrist- Primary documented in this encounter Care Teams Infection Preventionist Relationship Specialty Start Date End Date Anh Miles MD [address] [facility] [address] [place] [address] PCP - General Family Practice 09/22/13 documented as of this encounter
--- OUTSIDE RECORDS SUMMARY | 2025-03-27 19:19 | XMS_ITS | Encounter Summary ---
Author Organization [facility] Address [address] [place] [address] Care Team Providers Care Hair Clipper Power Name Role Phone Anh Miles MD Primary Care Provider Encounter Details Date Type Department Care Team (Latest Contact Info) Description 12/21/2003 Outpatient Historical [facility] [address] [place] [phone] EXAM AFTR OTHR HI-RISK COMPL RX NEC (Primary Dx); ANXIETY STATE NOS Social History Tobacco Use Types Packs/Day Years Used Date Smoking Tobacco: Never Assessed Comments Unknown Sex and Gender Information Value Date Recorded Sex Assigned at Not on file Legal Sex Female 3:11 AM SENIOR INVESTIGATOR Gender Identity Not on file Sexual Orientation Not on file documented as of this encounter Plan of Treatment Not on file documented as of this encounter Visit Diagnoses Diagnosis Follow-up examination following completed treatment with high-risk medications, not elsewhere classified- Primary Anxiety state, unspecified documented in this encounter Care Teams Hair Clipper Power Relationship Specialty Start Date End Date Anh Miles MD [address] [address] PCP - General Family Practice 09/22/13 documented as of this encounter
--- OUTSIDE RECORDS SUMMARY | 2025-03-27 19:19 | XMS_ITS | Encounter Summary ---
Author Organization [facility] Address [address] [place] [address] Care Team Providers Care Manager Of Planning Name Role Phone Anh Miles MD Primary Care Provider [phone]- [phone] Encounter Details Date Type Department Care Team (Latest Contact Info) Description 09/19/2001 Outpatient Historical [facility] Cardiology- [place] [address] [place] [address] BENIGN HYP HRT DIS W/O HRT FAIL (Primary Dx) Social History Tobacco Use Types Packs/Day Years Used Date Smoking Tobacco: Never Assessed Comments Unknown Sex and Gender Information Value Date Recorded Sex Assigned at Not on file Legal Sex Female 3:11 AM BEAM WORKER Gender Identity Not on file Sexual Orientation Not on file documented as of this encounter Plan of Treatment Not on file documented as of this encounter Visit Diagnoses Diagnosis Benign hypertensive heart disease without heart failure- Primary documented in this encounter Care Teams Manager Of Planning Relationship Specialty Start Date End Date Anh Miles MD [address] [address] PCP - General Family Practice 09/22/13 documented as of this encounter
--- OUTSIDE RECORDS SUMMARY | 2025-03-27 19:19 | XMS_ITS | Encounter Summary ---
Author Organization [facility] Address [address] [place] [address] Care Team Providers Care Sports Journalist Name Role Phone Anh Miles MD Primary Care Provider [phone]- [phone] Encounter Details Date Type Department Care Team (Latest Contact Info) Description 12/22/2003 Outpatient Historical [facility] [place] [address] [phone] HYPOPOTASSEMIA (Primary Dx) Social History Tobacco Use Types Packs/Day Years Used Date Smoking Tobacco: Never Assessed Comments Unknown Sex and Gender Information Value Date Recorded Sex Assigned at Not on file Legal Sex Female 3:11 AM PAPIER MACHE MOLDER Gender Identity Not on file Sexual Orientation Not on file documented as of this encounter Plan of Treatment Not on file documented as of this encounter Visit Diagnoses Diagnosis Hypopotassemia- Primary documented in this encounter Care Teams Sports Journalist Relationship Specialty Start Date End Date Anh Miles MD [address] [address] PCP - General Family Practice 09/22/13 documented as of this encounter
--- OUTSIDE RECORDS SUMMARY | 2025-03-27 19:19 | XMS_ITS | Encounter Summary ---
Author Organization [facility] Address [address] [place] [address] Care Team Providers Care Shaper Set Up Operator Name Role Phone Anh Miles MD Primary Care Provider Encounter Details Date Type Department Care Team (Latest Contact Info) Description 07/07/2002 Outpatient [facility] [address] [place] [phone] Lateral epicondylitis (Primary Dx); Benign hypertension; ANXIETY STATE NOS Social History Tobacco Use Types Packs/Day Years Used Date Smoking Tobacco: Never Assessed Comments Unknown Sex and Gender Information Value Date Recorded Sex Assigned at Not on file Legal Sex Female 3:11 AM NATIONAL OPELINT ANALYST Gender Identity Not on file Sexual Orientation Not on file documented as of this encounter Plan of Treatment Not on file documented as of this encounter Visit Diagnoses Diagnosis Lateral epicondylitis- Primary Lateral epicondylitis of elbow Benign hypertension Essential hypertension, benign Anxiety state, unspecified documented in this encounter Care Teams Shaper Set Up Operator Relationship Specialty Start Date End Date Anh Miles MD [address] [facility] [address] [place] [address] PCP - General Family Practice 09/22/13 documented as of this encounter
--- OUTSIDE RECORDS SUMMARY | 2025-03-27 19:19 | XMS_ITS | Encounter Summary ---
Author Organization [facility] Address [address] [place] [address] Care Team Providers Care Body Corporate Manager Name Role Phone Anh Miles MD Primary Care Provider Encounter Details Date Type Department Care Team (Late st Contact Info) Description 12/21/2003 Outpatient Historical [facility] [address] [place] [phone] Mora Mak, NEURODIAGNOSTIC TECH [address] [place] [address] Social History Tobacco Use Types Packs/Day Years Used Date Smoking Tobacco: Never Assessed Comments Unknown Sex and Gender Information Value Date Recorded Sex Assigned at Not on file Legal Sex Female 3:11 AM RESIDENTIAL FEE APPRAISER Gender Identity Not on file Sexual Orientation Not on file documented as of this encounter Plan of Treatment Not on file documented as of this encounter Visit Diagnoses Not on filedocumented in this encounter Care Teams Body Corporate Manager Relationship Specialty Start Date End Date Anh Miles MD [address] [facility] [place] [address] [place] [address] PCP - General Family Practice 09/22/13 documented as of this encounter
--- OUTSIDE RECORDS SUMMARY | 2025-03-27 19:19 | XMS_ITS | Encounter Summary ---
Author Organization [facility] Address [address] [place] [address] Care Team Providers Care Handicrafts Teacher Name Role Phone Anh Miles MD Primary Care Provider [phone] Encounter Details Date Type Department Care Team (Late st Contact Info) Description 03/14/2004 Outpatient Historical [facility] [address] [place] [phone] Mora Mak, MANAGER COUNCIL [address] [place] [address] Social History Tobacco Use Types Packs/Day Years Used Date Smoking Tobacco: Never Assessed Comments Unknown Sex and Gender Information Value Date Recorded Sex Assigned at Not on file Legal Sex Female 3:11 AM BASIN CLEANER Gender Identity Not on file Sexual Orientation Not on file documented as of this encounter Plan of Treatment Not on file documented as of this encounter Visit Diagnoses Not on filedocumented in this encounter Care Teams Handicrafts Teacher Relationship Specialty Start Date End Date Anh Miles MD [address] [facility] [address] [place] [address] PCP - General Family Practice 09/22/13 documented as of this encounter
--- OUTSIDE RECORDS SUMMARY | 2025-03-27 19:19 | XMS_ITS | Encounter Summary ---
Author Organization [facility] Address [address] [place] [address] Care Team Providers Care Fur Repair Inspector Name Role Phone Anh Miles MD Primary Care Provider Encounter Details Date Type Department Care Team (Latest Contact Info) Description 03/21/2002 Outpatient Historical [facility] [address] [place] [phone] JOINT PAIN-UP/ARM (Primary Dx); CONTUSION NOS Social History Tobacco Use Types Packs/Day Years Used Date Smoking Tobacco: Never Assessed Comments Unknown Sex and Gender Information Value Date Recorded Sex Assigned at Not on file Legal Sex Female 3:11 AM COMPUTER SYSTEMS SUPPORT SPECIALIST Gender Identity Not on file Sexual Orientation Not on file documented as of this encounter Plan of Treatment Not on file documented as of this encounter Visit Diagnoses Diagnosis Pain in joint, upper arm- Primary Contusion of unspecified site documented in this encounter Care Teams Fur Repair Inspector Relationship Specialty Start Date End Date Anh Miles MD [address] [facility] [address] [place] [address] PCP - General Family Practice 09/22/13 documented as of this encounter
--- OUTSIDE RECORDS SUMMARY | 2025-03-27 19:19 | XMS_ITS | Encounter Summary ---
Author Organization [facility] Address [address] [place] [address] Care Team Providers Care Financial Accounting Analyst Name Role Phone Anh Miles MD Primary Care Provider [phone] Encounter Details Date Type Department Care Team (Latest Contact Info) Description 03/14/[address] [facility] [place] [address] [place] [address] HYPOPOTASSEMIA (Primary Dx) Social History Tobacco Use Types Packs/Day Years Used Date Smoking Tobacco: Never Assessed Comments Unknown Sex and Gender Information Value Date Recorded Sex Assigned at Not on file Legal Sex Female 3:11 AM GOLF COURSE ARCHITECT Gender Identity Not on file Sexual Orientation Not on file documented as of this encounter Plan of Treatment Not on file documented as of this encounter Visit Diagnoses Diagnosis Hypopotassemia- Primary documented in this encounter Care Teams Financial Accounting Analyst Relationship Specialty Start Date End Date Anh Miles MD [address] [facility] [address] [place] [address] PCP - General Family Practice 09/22/13 documented as of this encounter
--- OUTSIDE RECORDS SUMMARY | 2025-03-27 19:19 | XMS_ITS | Encounter Summary ---
Author Organization [facility] Address [address] [place] [address] Care Team Providers Care Software Development Engineer Name Role Phone Anh Miles MD Primary Care Provider Encounter Details Date Type Department Care Team (Latest Contact Info) Description 12/19/2001 Outpatient Historical [facility] Cardiology- [place] [address] [place] [address] Benign hypertension (Primary Dx) Social History Tobacco Use Types Packs/Day Years Used Date Smoking Tobacco: Never Assessed Comments Unknown Sex and Gender Information Value Date Recorded Sex Assigned at Not on file Legal Sex Female 3:11 AM SMUTTER Gender Identity Not on file Sexual Orientation Not on file documented as of this encounter Plan of Treatment Not on file documented as of this encounter Visit Diagnoses Diagnosis Benign hypertension- Primary Essential hypertension, benign documented in this encounter Care Teams Software Development Engineer Relationship Specialty Start Date End Date Anh Miles MD [address] [facility] [address] [place] [address] PCP - General Family Practice 09/22/13 documented as of this encounter
--- OUTSIDE RECORDS SUMMARY | 2025-03-27 19:19 | XMS_ITS | Encounter Summary ---
Author Organization [facility] Address [address] [place] [address] Care Team Providers Care Collection Team Lead Name Role Phone Anh Miles MD Primary Care Provider [phone] Encounter Details Date Type Department Care Team (Latest Contact Info) Description 05/02/2002 Outpatient Historical [facility] Medicine [address] [phone] Lateral epicondylitis (Primary Dx) Social History Tobacco Use Types Packs/Day Years Used Date Smoking Tobacco: Never Assessed Comments Unknown Sex and Gender Information Value Date Recorded Sex Assigned at Not on file Legal Sex Female 3:11 AM PHARMACY TECHNICIAN INSTRUCTOR Gender Identity Not on file Sexual Orientation Not on file documented as of this encounter Plan of Treatment Not on file documented as of this encounter Visit Diagnoses Diagnosis Lateral epicondylitis- Primary Lateral epicondylitis of elbow documented in this encounter Care Teams Collection Team Lead Relationship Specialty Start Date End Date Anh Miles MD [address] [address] PCP - General Family Practice 09/22/13 documented as of this encounter
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
--- OUTSIDE RECORDS SUMMARY | 2025-03-27 19:19 | XMS_ITS | Encounter Summary ---
Author Organization [facility] Address [address] [place] [address] Care Team Providers Care Rewrite Editor Name Role Phone Anh Miles MD Primary Care Provider Encounter Details Date Type Department Care Team (Latest Contact Info) Description 04/18/[address] [facility] [address] [place] [phone] Lateral epicondylitis (Primary Dx) Social History Tobacco Use Types Packs/Day Years Used Date Smoking Tobacco: Never Assessed Comments Unknown Sex and Gender Information Value Date Recorded Sex Assigned at Not on file Legal Sex Female 3:11 AM PROJECTION ENGINEER Gender Identity Not on file Sexual Orientation Not on file documented as of this encounter Plan of Treatment Not on file documented as of this encounter Visit Diagnoses Diagnosis Lateral epicondylitis- Primary Lateral epicondylitis of elbow documented in this encounter Care Teams Rewrite Editor Relationship Specialty Start Date End Date Anh Miles MD [address] [phone] PCP - General Family Practice 09/22/13 documented as of this encounter
--- OUTSIDE RECORDS SUMMARY | 2025-03-27 19:19 | XMS_ITS | Encounter Summary ---
Author Organization [facility] Address [address] [place] [address] Care Team Providers Care Office Lead Name Role Phone Anh Miles MD Primary Care Provider [phone] Encounter Details Date Type Department Care Team (Latest Contact Info) Description 01/14/2003 Outpatient Historical [facility] Family Medicine- [place] [address] [place] [address] Dermatitis due to plant (Primary Dx) Social History Tobacco Use Types Packs/Day Years Used Date Smoking Tobacco: Never Assessed Comments Unknown Sex and Gender Information Value Date Recorded Sex Assigned at Not on file Legal Sex Female 3:11 AM BENCH INSPECTOR Gender Identity Not on file Sexual Orientation Not on file documented as of this encounter Plan of Treatment Not on file documented as of this encounter Visit Diagnoses Diagnosis Dermatitis due to plant- Primary Contact dermatitis and other eczema due to plants (except food) documented in this encounter Care Teams Office Lead Relationship Specialty Start Date End Date Anh Miles MD [address] [facility] [address] [place] [address] PCP - General Family Practice 09/22/13 documented as of this encounter
--- OUTSIDE RECORDS SUMMARY | 2025-03-27 19:19 | XMS_ITS | Encounter Summary ---
Author Organization [facility] Address [address] [place] [address] Care Team Providers Care Personal Companion Name Role Phone Anh Miles MD Primary Care Provider Encounter Details Date Type Department Care Team (Latest Contact Info) Description 10/17/2001 Outpatient Historical [facility] Cardiology- [place] [address] [place] [address] Benign hypertension (Primary Dx) Social History Tobacco Use Types Packs/Day Years Used Date Smoking Tobacco: Never Assessed Comments Unknown Sex and Gender Information Value Date Recorded Sex Assigned at Not on file Legal Sex Female 3:11 AM COMPUTER BUILDER Gender Identity Not on file Sexual Orientation Not on file documented as of this encounter Plan of Treatment Not on file documented as of this encounter Visit Diagnoses Diagnosis Benign hypertension- Primary Essential hypertension, benign documented in this encounter Care Teams Personal Companion Relationship Specialty Start Date End Date Anh Miles MD [address] [facility] [address] [place] [phone] PCP - General Family Practice 09/22/13 documented as of this encounter
--- OUTSIDE RECORDS SUMMARY | 2025-03-27 19:19 | XMS_ITS | Encounter Summary ---
Author Organization [facility] Address [address] [place] [address] Care Team Providers Care Nut Sifter Name Role Phone Anh Miles MD Primary Care Provider Encounter Details Date Type Department Care Team (Latest Contact Info) Description 09/26/2001 Outpatient Historical [facility] Cardiology [facility] [address] [place] [address] PRECORDIAL PAIN (Primary Dx) Social History Tobacco Use Types Packs/Day Years Used Date Smoking Tobacco: Never Assessed Comments Unknown Sex and Gender Information Value Date Recorded Sex Assigned at Not on file Legal Sex Female 3:11 AM MANAGER TELECOM Gender Identity Not on file Sexual Orientation Not on file documented as of this encounter Plan of Treatment Not on file documented as of this encounter Visit Diagnoses Diagnosis Precordial pain- Primary documented in this encounter Care Teams Nut Sifter Relationship Specialty Start Date End Date Anh Miles MD [address] [facility] [address] [place] [phone] PCP - General Family Practice 09/22/13 documented as of this encounter
--- OUTSIDE RECORDS SUMMARY | 2025-03-27 19:19 | XMS_ITS | Encounter Summary ---
Author Organization [facility] Address [address] [place] [address] Care Team Providers Care 8Th Grade Mathematics Teacher Name Role Phone Anh Miles MD Primary Care Provider Encounter Details Date Type Department Care Team (Latest Contact Info) Description 07/01/2002 Outpatient Historical [facility] Cardiology- [place] [address] [place] [address] Benign hypertension (Primary Dx) Social History Tobacco Use Types Packs/Day Years Used Date Smoking Tobacco: Never Assessed Comments Unknown Sex and Gender Information Value Date Recorded Sex Assigned at Not on file Legal Sex Female 3:11 AM IT APPLICATION DEVELOPMENT MANAGER Gender Identity Not on file Sexual Orientation Not on file documented as of this encounter Plan of Treatment Not on file documented as of this encounter Visit Diagnoses Diagnosis Benign hypertension- Primary Essential hypertension, benign documented in this encounter Care Teams 8Th Grade Mathematics Teacher Relationship Specialty Start Date End Date Anh Miles MD [address] [facility] [address] [place] [phone] PCP - General Family Practice 09/22/13 documented as of this encounter
--- OUTSIDE RECORDS SUMMARY | 2025-03-27 19:19 | XMS_ITS | Encounter Summary ---
Author Organization [facility] Address [address] [place] [address] Care Team Providers Care Pantograph Engraver Name Role Phone Anh Miles MD Primary Care Provider [phone] Encounter Details Date Type Department Care Team (Latest Contact Info) Description 12/08/2003 Outpatient Historical [facility] Cardiology- [place] [address] [place] [address] HYPERTENSION NOS (Primary Dx) Social History Tobacco Use Types Packs/Day Years Used Date Smoking Tobacco: Never Assessed Comments Unknown Sex and Gender Information Value Date Recorded Sex Assigned at Not on file Legal Sex Female 3:11 AM QUALITY RN Gender Identity Not on file Sexual Orientation Not on file documented as of this encounter Plan of Treatment Not on file documented as of this encounter Visit Diagnoses Diagnosis Unspecified essential hypertension- Primary documented in this encounter Care Teams Pantograph Engraver Relationship Specialty Start Date End Date Anh Miles MD [address] [facility] [address] [place] [phone] PCP - General Family Practice 09/22/13 documented as of this encounter
--- OUTSIDE RECORDS SUMMARY | 2025-03-27 19:19 | XMS_ITS | Encounter Summary ---
Author Organization [facility] Address [address] [place] [address] Care Team Providers Care Absorption Operator Name Role Phone Anh Miles MD Primary Care Provider [phone] Encounter Details Date Type Department Care Team (Latest Contact Info) Description 05/27/2003 Outpatient Historical [facility] [address] [place] [phone] HYPERTENSION NOS (Primary Dx); ANXIETY STATE NOS Social History Tobacco Use Types Packs/Day Years Used Date Smoking Tobacco: Never Assessed Comments Unknown Sex and Gender Information Value Date Recorded Sex Assigned at Not on file Legal Sex Female 3:11 AM MEETING FACILITATOR Gender Identity Not on file Sexual Orientation Not on file documented as of this encounter Plan of Treatment Not on file documented as of this encounter Visit Diagnoses Diagnosis Unspecified essential hypertension- Primary Anxiety state, unspecified documented in this encounter Care Teams Absorption Operator Relationship Specialty Start Date End Date Anh Miles MD [address] [address] PCP - General Family Practice 09/22/13 documented as of this encounter
--- OUTSIDE RECORDS SUMMARY | 2025-03-27 19:20 | XMS_ITS | Encounter Summary ---
Author Organization [facility] Address [address] [place] [address] Care Team Providers Care Software Performance Engineer Name Role Phone Anh Miles MD Primary Care Provider [phone] Encounter Details Date Type Department Care Team (Latest Contact Info) Description 07/20/2000 Outpatient Historical [facility] Medicine [place] [address] [phone] Anxiety state, unspecified (Primary Dx); Depressive disorder, not elsewhere classified Social History Tobacco Use Types Packs/Day Years Used Date Smoking Tobacco: Never Assessed Comments Unknown Sex and Gender Information Value Date Recorded Sex Assigned at Not on file Legal Sex Female 3:11 AM REMEDY DEVELOPER Gender Identity Not on file Sexual Orientation Not on file documented as of this encounter Plan of Treatment Not on file documented as of this encounter Visit Diagnoses Diagnosis Anxiety state, unspecified- Primary Depressive disorder, not elsewhere classified documented in this encounter Care Teams Software Performance Engineer Relationship Specialty Start Date End Date Anh Miles MD [address] [phone] PCP - General Family Practice 09/22/13 documented as of this encounter
--- OUTSIDE RECORDS SUMMARY | 2025-03-27 19:20 | XMS_ITS | Encounter Summary ---
Author Organization [facility] Address [address] [place] [address] Care Team Providers Care It Systems Analyst Name Role Phone Anh Miles MD Primary Care Provider Encounter Details Date Type Department Care Team (Latest Contact Info) Description 11/10/[address] [facility] OBGYN-[address] [place] [address] UTERINE LEIOMYOMA NOS (Primary Dx); OVARIAN CYST NEC/NOS; FEM PELV PERITON ADHES POSTOP/INFEC Social History Tobacco Use Types Packs/Day Years Used Date Smoking Tobacco: Never Assessed Comments Unknown Sex and Gender Information Value Date Recorded Sex Assigned at Not on file Legal Sex Female 3:11 AM PRECAST CONCRETE PRODUCTS INSTALLER Gender Identity Not on file Sexual Orientation Not on file documented as of this encounter Plan of Treatment Not on file documented as of this encounter Visit Diagnoses Diagnosis Leiomyoma of uterus, unspecified- Primary Other and unspecified ovarian cyst Pelvic peritoneal adhesions, female (postoperative) (postinfection) documented in this encounter Care Teams It Systems Analyst Relationship Specialty Start Date End Date Anh Miles MD [address] [facility] [address] [place] [phone] PCP - General Family Practice 09/22/13 documented as of this encounter
--- OUTSIDE RECORDS SUMMARY | 2025-03-27 19:20 | XMS_ITS | Encounter Summary ---
Author Organization [facility] Address [address] [place] [address] Care Team Providers Care Windows Application Administrator Name Role Phone Anh Miles MD Primary Care Provider Encounter Details Date Type Department Care Team (Late st Contact Info) Description 11/10/2004 Inpatient Historical [facility] Dante Chong MD [address] [address] SUBMUCOUS LEIOMYOMA (Primary Dx) Social History Tobacco Use Types Packs/Day Years Used Date Smoking Tobacco: Never Assessed Comments Unknown Sex and Gender Information Value Date Recorded Sex Assigned at Not on file Legal Sex Female 3:11 AM FENCE POST DRIVER Gender Identity Not on file Sexual Orientation Not on file documented as of this encounter Plan of Treatment Not on file documented as of this encounter Procedures Procedure Name Priority Date/Time Associated Diagnosis Comments CBC WITHOUT DIFFERENTIAL Routine 11/11/2004 5:18 AM FENCE POST DRIVER documented in this encounter Results * (ABNORMAL) CBC WITHOUT DIFFERENTIAL (11/11/2004 5:18 AM FENCE POST DRIVER) WBC 10.6 4.5 - 11.0 K/ul INTERFACE SYSTEM RBC 4.19(L) 4.20 - 5.40 Mil/ul INTERFACE SYSTEM HEMOGLOBIN 12.7 12.0 - 16.0 g/dL INTERFACE SYSTEM HEMATOCRIT 38.4 36.0 - 46.0 % INTERFACE SYSTEM MCV 91.6 84.0 - 103.0 Fl INTERFACE SYSTEM MCH 30.3 27.0 - 34.0 pg INTERFACE SYSTEM MCHC 33.1 30.0 - 35.0 g/dL INTERFACE SYSTEM RDW 13.8 11.0 - 14.5 percent(in active) INTERFACE SYSTEM PLATELETS 297 140 - 440 K/ul INTERFACE SYSTEM MPV 9.8 8.9 - 12.8 Fl INTERFACE SYSTEM NEUTROPHILS 76.3(H) 42.2 - 75.2 percent(in active) INTERFACE SYSTEM LYMPHOCYTES 13.5(L) 24.0 - 44.0 percent(in active) INTERFACE SYSTEM MONOCYTES 9.1 2.0 - 10.0 percent(in active) INTERFACE SYSTEM EOSINOPHILS 0.8 0.0 - 7.0 % INTERFACE SYSTEM BASOPHILS 0.3 0.0 - 1.0 percent(in active) INTERFACE SYSTEM NEUTROPHIL ABSOLUTE 8.1(H) 2.0 - 8.0 K/uL INTERFACE SYSTEM LYMPHOCYTE ABSOLUTE 1.4 1.2 - 4.0 K/ul INTERFACE SYSTEM MONOCYTE ABSOLUTE 1.0(H) 0.1 - 0.6 K/ul INTERFACE SYSTEM EOSINOPHIL ABSOLUTE 0.1 0.0 - 0.7 K/ul INTERFACE SYSTEM BASOPHILS ABSOLUTE 0.0 0.0 - 0.2 K/ul INTERFACE SYSTEM 11/11/2004 5:18 AM FENCE POST DRIVER Dante Chong MD HEMATOLOGY ORDERABLES Final Result INTERFACE SYSTEM Refer to clinic/hospital department documented in this encounter Visit Diagnoses Diagnosis Submucous leiomyoma of uterus- Primary documented in this encounter Care Teams Windows Application Administrator Relationship Specialty Start Date End Date Anh Miles MD [address] [facility] [place] [address] PCP - General Family Practice 09/22/13 documented as of this encounter
--- OUTSIDE RECORDS SUMMARY | 2025-03-27 19:20 | XMS_ITS | Encounter Summary ---
Author Organization [facility] Address [address] [place] [address] Care Team Providers Care Civil Cad Designer Name Role Phone Anh Miles MD Primary Care Provider [phone] Encounter Details Date Type Department Care Team (Latest Contact Info) Description 11/06/2000 Outpatient Historical [facility] Medicine [place] [address] [phone] Unspecified essential hypertension (Primary Dx); Anxiety state, unspecified Social History Tobacco Use Types Packs/Day Years Used Date Smoking Tobacco: Never Assessed Comments Unknown Sex and Gender Information Value Date Recorded Sex Assigned at Not on file Legal Sex Female 3:11 AM SKI EDGE PAINTER Gender Identity Not on file Sexual Orientation Not on file documented as of this encounter Plan of Treatment Not on file documented as of this encounter Visit Diagnoses Diagnosis Unspecified essential hypertension- Primary Anxiety state, unspecified documented in this encounter Care Teams Civil Cad Designer Relationship Specialty Start Date End Date Anh Miles MD [address] [phone] PCP - General Family Practice 09/22/13 documented as of this encounter
--- OUTSIDE RECORDS SUMMARY | 2025-03-27 19:20 | XMS_ITS | Encounter Summary ---
Author Organization [facility] Address [address] [place] [address] Care Team Providers Care Magnaflux Operator Name Role Phone Anh Miles MD Primary Care Provider Encounter Details Date Type Department Care Team (Latest Contact Info) Description 11/07/2004 Outpatient Historical [facility] [address] [place] [address] Dante Chong MD [address] [address] PREOP CARDIOVASC EXAM (Primary Dx) Social History Tobacco Use Types Packs/Day Years Used Date Smoking Tobacco: Never Assessed Comments Unknown Sex and Gender Information Value Date Recorded Sex Assigned at Not on file Legal Sex Female 3:11 AM MARBLE MACHINE OPERATOR Gender Identity Not on file Sexual Orientation Not on file documented as of this encounter Plan of Treatment Not on file documented as of this encounter Procedures Procedure Name Priority Date/Time Associated Diagnosis Comments CBC WITHOUT DIFFERENTIAL Routine 11/07/2004 11:35 AM MARBLE MACHINE OPERATOR HCG QUANTITATIVE, BLOOD Routine 11/07/2004 11:35 AM MARBLE MACHINE OPERATOR COMPREHENSIVE METABOLIC PANEL Routine 11/07/2004 11:35 AM MARBLE MACHINE OPERATOR documented in this encounter Results * HCG QUANTITATIVE, BLOOD (11/07/2004 11:35 AM MARBLE MACHINE OPERATOR) CHORIONIC GONADOTROPIN, TOTAL <2.0 0.0 - 5.0 MIU/ml INTERFACE SYSTEM Comment: B-HCG levels between 5 mIU/mL and 25 mIU/mL may be indicative of early but need to be correlated with other clinical findings. HCG ranges during normal , as reported in the literature, are summarized as follows: Weeks Post LMP Approximate hCG (Last Menstrual Period) Range (mIU/mL) 3-4 Weeks 9 - 130 4-5 Weeks 75 - 2,600 5-6 Weeks 850 - 20,800 6-7 Weeks 4,000 - 100,200 7-12 Weeks 11,500 - 289,000 12-16 Weeks 18,300 - 137,000 16-29 Weeks 1,400 - 53,000 (2nd Trimester) 29-41 Weeks 940 - 60,000 (3rd Trimester) 11/07/2004 11:3 5 AM MARBLE MACHINE OPERATOR us Dante Chong MD CHEMISTRY ORDERABLES Final R esult INTERFACE SYSTEM Refer to clinic/hospital department * (ABNORMAL) COMPREHENSIVE METABOLIC PANEL (11/07/2004 11:35 AM MARBLE MACHINE OPERATOR) GLUCOSE 101 70 - 110 mg/dL INTERFACE SYSTEM BUN 8 7 - 17 mg/dL INTERFACE SYSTEM CREATININE 0.8 0.7 - 1.2 mg/dL (inactive) INTERFACE SYSTEM SODIUM 142 136 - 145 mEq/L INTERFACE SYSTEM POTASSIUM 3.2(L) 3.5 - 5.0 mEq/L INTERFACE SYSTEM CO2 28 22 - 32 mmol/l INTERFACE SYSTEM CHLORIDE 104 95 - 110 mEq/L INTERFACE SYSTEM CALCIUM 9.1 8.4 - 10.5 mg/dL INTERFACE SYSTEM ALKALINE PHOSPHATASE 127(H) 38 - 126 IU/L INTERFACE SYSTEM TOTAL PROTEIN 8.9(H) 6.3 - 8.2 g/dL INTERFACE SYSTEM ALBUMIN 4.3 3.5 - 5.0 g/dL INTERFACE SYSTEM AST 25 14 - 36 IU/L INTERFACE SYSTEM ALT 22 9 - 52 IU/L INTERFACE SYSTEM BILIRUBIN TOTAL 0.7 0.2 - 1.4 mg/dL INTERFACE SYSTEM GLOBULIN (CALC) 4.6(H) 2.4 - 3.9 g/dL INTERFACE SYSTEM ANION GAP 13 9 - 20 mEq/L INTERFACE SYSTEM ALBUMIN/GLOBULIN RATIO 0.9(L) 1.0 - 2.3 INTERFACE SYSTEM OSMOLALITY, CALCULATED 289 275 - 295 mOsm/Kg INTERFACE SYSTEM 11/07/2004 11:3 5 AM MARBLE MACHINE OPERATOR us Dante Chong MD CHEMISTRY ORDERABLES Final R esult INTERFACE SYSTEM Refer to clinic/hospital department * (ABNORMAL) CBC WITHOUT DIFFERENTIAL (11/07/2004 11:35 AM MARBLE MACHINE OPERATOR) WBC 7.8 4.5 - 11.0 K/ul INTERFACE SYSTEM RBC 4.96 4.20 - 5.40 Mil/ul INTERFACE SYSTEM HEMOGLOBIN 15.5 12.0 - 16.0 g/dL INTERFACE SYSTEM HEMATOCRIT 43.9 36.0 - 46.0 % INTERFACE SYSTEM MCV 88.5 84.0 - 103.0 Fl INTERFACE SYSTEM MCH 31.3 27.0 - 34.0 pg INTERFACE SYSTEM MCHC 35.3(H) 30.0 - 35.0 g/dL INTERFACE SYSTEM RDW 13.2 11.0 - 14.5 percent(in active) INTERFACE SYSTEM PLATELETS 346 140 - 440 K/ul INTERFACE SYSTEM MPV 9.6 8.9 - 12.8 Fl INTERFACE SYSTEM NEUTROPHILS 70.7 42.2 - 75.2 percent(in active) INTERFACE SYSTEM LYMPHOCYTES 20.9(L) 24.0 - 44.0 percent(in active) INTERFACE SYSTEM MONOCYTES 5.9 2.0 - 10.0 percent(in active) INTERFACE SYSTEM EOSINOPHILS 1.7 0.0 - 7.0 % INTERFACE SYSTEM BASOPHILS 0.8 0.0 - 1.0 percent(in active) INTERFACE SYSTEM NEUTROPHIL ABSOLUTE 5.5 2.0 - 8.0 K/uL INTERFACE SYSTEM LYMPHOCYTE ABSOLUTE 1.6 1.2 - 4.0 K/ul INTERFACE SYSTEM MONOCYTE ABSOLUTE 0.5 0.1 - 0.6 K/ul INTERFACE SYSTEM EOSINOPHIL ABSOLUTE 0.1 0.0 - 0.7 K/ul INTERFACE SYSTEM BASOPHILS ABSOLUTE 0.1 0.0 - 0.2 K/ul INTERFACE SYSTEM 11/07/2004 11:3 5 AM MARBLE MACHINE OPERATOR us Dante Chong MD HEMATOLOGY ORDERABLES Final Result INTERFACE SYSTEM Refer to clinic/hospital department documented in this encounter Visit Diagnoses Diagnosis Pre-operative cardiovascular examination- Primary documented in this encounter Care Teams Magnaflux Operator Relationship Specialty Start Date End Date Anh Miles MD [address] [phone] PCP - General Family Practice 09/22/13 documented as of this encounter
--- OUTSIDE RECORDS SUMMARY | 2025-03-27 19:20 | XMS_ITS | Encounter Summary ---
Author Organization [facility] Address [address] [place] [address] Care Team Providers Care Hydrographic Engineer Name Role Phone Anh Miles MD Primary Care Provider Encounter Details Date Type Department Care Team (Latest Contact Info) Description 11/07/2004 Outpatient Historical [facility] [address] [place] [address] PREOP EXAM OTHER UNSPECIFIED (Primary Dx) Social History Tobacco Use Types Packs/Day Years Used Date Smoking Tobacco: Never Assessed Comments Unknown Sex and Gender Information Value Date Recorded Sex Assigned at Not on file Legal Sex Female 3:11 AM RESEARCHER Gender Identity Not on file Sexual Orientation Not on file documented as of this encounter Plan of Treatment Not on file documented as of this encounter Visit Diagnoses Diagnosis Preoperative examination, unspecified- Primary documented in this encounter Care Teams Hydrographic Engineer Relationship Specialty Start Date End Date Anh Miles MD [address] [phone] PCP - General Family Practice 09/22/13 documented as of this encounter
--- OUTSIDE RECORDS SUMMARY | 2025-03-27 19:20 | XMS_ITS | Encounter Summary ---
Author Organization [facility] Address [address] [place] [address] Care Team Providers Care Enterprise Resource Planner Name Role Phone Anh Miles MD Primary Care Provider Encounter Details Date Type Department Care Team (Latest Contact Info) Description 09/02/2001 Outpatient Historical [facility] [address] [place] [phone] Benign hypertension (Primary Dx); OTHER MALAISE AND FATIGUE Social History Tobacco Use Types Packs/Day Years Used Date Smoking Tobacco: Never Assessed Comments Unknown Sex and Gender Information Value Date Recorded Sex Assigned at Not on file Legal Sex Female 3:11 AM JAVA SWING DEVELOPER Gender Identity Not on file Sexual Orientation Not on file documented as of this encounter Plan of Treatment Not on file documented as of this encounter Visit Diagnoses Diagnosis Benign hypertension- Primary Essential hypertension, benign Other malaise and fatigue documented in this encounter Care Teams Enterprise Resource Planner Relationship Specialty Start Date End Date Anh Miles MD [address] [facility] [address] [place] [address] PCP - General Family Practice 09/22/13 documented as of this encounter
--- OUTSIDE RECORDS SUMMARY | 2025-03-27 19:20 | XMS_ITS | Encounter Summary ---
Author Organization [facility] Address [address] [place] [address] Care Team Providers Care Traffic Control Officer Name Role Phone Anh Miles MD Primary Care Provider Encounter Details Date Type Department Care Team (Latest Contact Info) Description 08/22/2006 Outpatient Historical [facility] [address] [place] [phone] Acute Upper Respiratory Infections of Unspecified Site (Primary Dx) Social History Tobacco Use Types Packs/Day Years Used Date Smoking Tobacco: Never Assessed Comments Unknown Sex and Gender Information Value Date Recorded Sex Assigned at Not on file Legal Sex Female 3:11 AM TELEPHONE MESSENGER Gender Identity Not on file Sexual Orientation Not on file documented as of this encounter Plan of Treatment Not on file documented as of this encounter Visit Diagnoses Diagnosis Acute upper respiratory infections of unspecified site- Primary documented in this encounter Care Teams Traffic Control Officer Relationship Specialty Start Date End Date Anh Miles MD [address] [address] PCP - General Family Practice 09/22/13 documented as of this encounter
--- OUTSIDE RECORDS SUMMARY | 2025-03-27 19:20 | XMS_ITS | Encounter Summary ---
Author Organization [facility] Address [address] [place] [address] Care Team Providers Care Marketing Effectiveness Manager Name Role Phone Anh Miles MD Primary Care Provider Encounter Details Date Type Department Care Team (Latest Contact Info) Description 09/14/2004 Outpatient Historical [facility] [address] [place] [phone] RECTOCELE (Primary Dx); OVARIAN CYST NEC/NOS; VAGINITIS NOS Social History Tobacco Use Types Packs/Day Years Used Date Smoking Tobacco: Never Assessed Comments Unknown Sex and Gender Information Value Date Recorded Sex Assigned at Not on file Legal Sex Female 3:11 AM BIG MACHINE CONSULTANT Gender Identity Not on file Sexual Orientation Not on file documented as of this encounter Plan of Treatment Not on file documented as of this encounter Visit Diagnoses Diagnosis Rectocele- Primary Other and unspecified ovarian cyst Vaginitis and vulvovaginitis, unspecified documented in this encounter Care Teams Marketing Effectiveness Manager Relationship Specialty Start Date End Date Anh Miles MD [address] [facility] [address] [place] [address] PCP - General Family Practice 09/22/13 documented as of this encounter
--- OUTSIDE RECORDS SUMMARY | 2025-03-27 19:20 | XMS_ITS | Encounter Summary ---
Author Organization [facility] Address [address] [place] [address] Care Team Providers Care Data Officer Name Role Phone Anh Miles MD Primary Care Provider [phone] Encounter Details Date Type Department Care Team (Latest Contact Info) Description 07/02/2000 Outpatient Historical [facility] [place] [address] [phone] Unspecified essential hypertension (Primary Dx); Depressive disorder, not elsewhere classified Social History Tobacco Use Types Packs/Day Years Used Date Smoking Tobacco: Never Assessed Comments Unknown Sex and Gender Information Value Date Recorded Sex Assigned at Not on file Legal Sex Female 3:11 AM RELAY TESTER HELPER Gender Identity Not on file Sexual Orientation Not on file documented as of this encounter Plan of Treatment Not on file documented as of this encounter Visit Diagnoses Diagnosis Unspecified essential hypertension- Primary Depressive disorder, not elsewhere classified documented in this encounter Care Teams Data Officer Relationship Specialty Start Date End Date Anh Miles MD [address] [phone] PCP - General Family Practice 09/22/13 documented as of this encounter
--- OUTSIDE RECORDS SUMMARY | 2025-03-27 19:20 | XMS_ITS | Encounter Summary ---
Author Organization [facility] Address [address] [place] [address] Care Team Providers Care Tax Economist Name Role Phone Anh Miles MD Primary Care Provider [phone] Encounter Details Date Type Department Care Team (Late st Contact Info) Description 10/26/2006 Outpatient Historical [facility] [address] [place] [phone] Mora Mak, SPECIAL LIBRARIAN [address] [place] [address] Social History Tobacco Use Types Packs/Day Years Used Date Smoking Tobacco: Never Assessed Comments Unknown Sex and Gender Information Value Date Recorded Sex Assigned at Not on file Legal Sex Female 3:11 AM UPPER TRIMMER Gender Identity Not on file Sexual Orientation Not on file documented as of this encounter Plan of Treatment Not on file documented as of this encounter Visit Diagnoses Not on filedocumented in this encounter Care Teams Tax Economist Relationship Specialty Start Date End Date Anh Miles MD [address] [facility] 60 [place] [address] PCP - General Family Practice 09/22/13 documented as of this encounter
--- OUTSIDE RECORDS SUMMARY | 2025-03-27 19:20 | XMS_ITS | Encounter Summary ---
Author Organization [facility] Address [address] [place] [address] Care Team Providers Care Transitional Care Liaison Name Role Phone Anh Miles MD Primary Care Provider [phone] Encounter Details Date Type Department Care Team (Late st Contact Info) Description 09/14/2004 Outpatient Historical [facility] [address] [place] [phone] Mora Mak, DIRECTOR OF SAFETY [address] [place] [address] Social History Tobacco Use Types Packs/Day Years Used Date Smoking Tobacco: Never Assessed Comments Unknown Sex and Gender Information Value Date Recorded Sex Assigned at Not on file Legal Sex Female 3:11 AM GLASS LOADING EQUIPMENT TENDER Gender Identity Not on file Sexual Orientation Not on file documented as of this encounter Plan of Treatment Not on file documented as of this encounter Visit Diagnoses Not on filedocumented in this encounter Care Teams Transitional Care Liaison Relationship Specialty Start Date End Date Ahn Miles MD [address] [facility] 60 [place] [address] PCP - General Family Practice 09/22/13 documented as of this encounter
--- OUTSIDE RECORDS SUMMARY | 2025-03-27 19:20 | XMS_ITS | Clinical Summary ---
Author Organization [facility] Address [address] [place] [address] Care Team Providers Care Vibrator Operator Name Role Phone Non-Staff, Physician Primary Care Provider Unava ilable Allergies No known active allergies Medications hydroCHLOROthia zide 50 mg tablet TAKE 1 TABLET BY MOUTH ONCE DAILY 90 Tablet 0 9 Active citalopram (CeleXA) 20 mg tablet TAKE 1/2 (ONE-HALF) TABLET BY MOUTH ONCE DAILY AT BEDTIME 45 Tablet 1 9 Active neomycin-polymy rosaura-hydrocortis one (CORTISPORIN) 3.5-10,000-1 mg/mL-unit/mL-% otic solutionIndicat ions:Other infective acute otitis externa of right ear Administer 3 Drops in right ear 4 times daily. 10 mL 4 Active Active Problems Problem Noted Date Diagnosed Date Generalized anxiety disorder 03/25/2008 Essential hypertension 03/25/2008 Hypertriglyceridemia, essential 03/25/2008 Encounters Date Type Department Care Team Description 03/18/2025 External Device Data [facility] ABSTRACTION Provider, Abstract 03/18/2025 External Device Data [facility] ABSTRACTION Provider, Abstract 02/24/2025 External Device Data [facility] ABSTRACTION Provider, Abstract 01/21/2025 External Device Data [facility] ABSTRACTION Provider, Abstract 01/20/2025 External Device Data [facility] ABSTRACTION Provider, Abstract from Last 3 Months Immunizations Immunization Administration Dates Next Due (PFIZER)(12 YR UP) COVID-19 VACCINE - EMERGENCY USE AUTHORIZATION, MRNA, [id number](PF) 30 MCG/0.3 ML IM SUSP 01/01/2021,12/11/2020 INFLUENZA VACCINE HIGH DOSE QUADRIVALENT 65 YR UP PF IM 07/13/2023 INFLUENZA VACCINE INACTIVATE D ADJUV, (65 YR UP), 0.5ML (PF), IM 06/06/2024 INFLUENZA VACCINE QUADRIVALE NT 3 YR UP PF IM 07/19/2016 Influenza Seasonal Unspecifi ed Formulation IM 08/16/2021,06/26/2019,06/19/2018,2016,07/19/2016 Influenza Vaccine Split 3+ Yrs IM 06/19/2018 Social History Tobacco Use Types Packs/Day Years Used Date Smoking Tobacco: Never Smokeless Tobacco: Never Tobacco Cessation:Counseling Given: No Alcohol Use Standard Drinks/Week Comments No 0 (1 standard drink = 0.6 oz pur e alcohol) Comments No Sex and Gender Information Value Date Recorded Sex Assigned at Not on file Legal Sex Female 12:28 AM PLASTERER HELPER Gender Identity Not on file Sexual Orientation Not on file Last Filed Vital Signs Vital Sign Reading Time Taken Comments Blood Pressure 130/82 07/18/2024 1:57 PM PLASTERER HELPER Pulse 84 07/18/2024 1:57 PM PLASTERER HELPER Temperature 36.9 C (98.4 F) 07/18/2024 1:57 PM PLASTERER HELPER Respiratory Rate 16 07/18/2024 1:57 PM PLASTERER HELPER Oxygen Saturation 97% 07/18/2024 1:57 PM PLASTERER HELPER Inhaled Oxygen Concentration - - Weight 65.3 kg (144 lb) 07/18/2024 1:57 PM PLASTERER HELPER Height 170.2 cm (5' 7 ) 07/18/2024 1:57 PM PLASTERER HELPER Body Mass Index 22.55 07/18/2024 1:57 PM PLASTERER HELPER Plan of Treatment Health Maintenance Due Date [...] OSTEOPOROSIS SCREENING 2021 COVID-19 Vaccine (3 - 2023-2 5 season) 2024 01/01/2021, 12/11/2020 INFLUENZA VACCINE (#1) 2025 , 07/13/2023, 08/16/2021, Additional history exists RSV VACCINE (60+ or ) (1 - 1-dose 75+ series) 2031 Insurance MEDICARE PART A AND B [address] Care Teams Vibrator Operator Relationship Specialty Start Date End Date Non-Staff, Physician NO ADDRESS ON FILE PCP - General 11/04/21
--- OUTSIDE RECORDS SUMMARY | 2025-03-27 19:20 | XMS_ITS | Encounter Summary ---
Author Organization [facility] Address [address] Acharyan: [place] [address] Care Team Providers Care Human Resources Clerk Name Role Phone Anh Miles MD Primary Care Provider [phone] Encounter Details Date Type Department Care Team (Late st Contact Info) Description 09/11/2001 Outpatient Historical Mora Mak, DIRECTOR OF SOFTWARE ENGINEERING [address] [place] [phone] Social History Tobacco Use Types Packs/Day Years Used Date Smoking Tobacco: Never Assessed Comments Unknown Sex and Gender Information Value Date Recorded Sex Assigned at Not on file Legal Sex Female 3:11 AM GRADES 1 THRU 6 HOME TEACHER Gender Identity Not on file Sexual Orientation Not on file documented as of this encounter Plan of Treatment Not on file documented as of this encounter Visit Diagnoses Not on filedocumented in this encounter Care Teams Human Resources Clerk Relationship Specialty Start Date End Date Anh Miles MD [address] [facility] 60 [place] [phone] PCP - General Family Practice 09/22/13 documented as of this encounter
--- OUTSIDE RECORDS SUMMARY | 2025-03-27 19:20 | XMS_ITS | Encounter Summary ---
Author Organization [employer] Address [address] [place] [address] Care Team Providers Care Coagulating Bath Operator Name Role Phone Non-Staff, Physician Primary Care Provider Unava ilable Encounter Details Date Type Department Care Team (Late st Contact Info) Description 03/18/2025 External Device Data [facility] ABSTRACTION Provider, Abstract NO ADDRESS ON FILE Social History Tobacco Use Types Packs/Day Years Used Date Smoking Tobacco: Never Smokeless Tobacco: Never Alcohol Use Standard Drinks/Week Comments No 0 (1 standard drink = 0.6 oz pur e alcohol) Comments No Sex and Gender Information Value Date Recorded Sex Assigned at Not on file Legal Sex Female 12:28 AM FINISHER ACCORDION Gender Identity Not on file Sexual Orientation Not on file documented as of this encounter Plan of Treatment Not on file documented as of this encounter Visit Diagnoses Not on filedocumented in this encounter Care Teams Coagulating Bath Operator Relationship Specialty Start Date End Date Non-Staff, Physician NO ADDRESS ON FILE PCP - General 11/04/21 documented as of this encounter
--- OUTSIDE RECORDS SUMMARY | 2025-03-27 19:20 | XMS_ITS | Encounter Summary ---
Author Organization [facility] Address [address] [place] [address] Care Team Providers Care Director Internal Communications Name Role Phone Anh Miles MD Primary Care Provider Encounter Details Date Type Department Care Team (Latest Contact Info) Description 09/20/2004 Outpatient Historical [facility] Medicine [place] [address] [phone] UTERINE LEIOMYOMA NOS (Primary Dx); METRORRHAGIA; VAGINAL WALL PROLAPSE NOS Social History Tobacco Use Types Packs/Day Years Used Date Smoking Tobacco: Never Assessed Comments Unknown Sex and Gender Information Value Date Recorded Sex Assigned at Not on file Legal Sex Female 3:11 AM SENIOR UI WEB DEVELOPER Gender Identity Not on file Sexual Orientation Not on file documented as of this encounter Plan of Treatment Not on file documented as of this encounter Visit Diagnoses Diagnosis Leiomyoma of uterus, unspecified- Primary Metrorrhagia Unspecified prolapse of vaginal card documented in this encounter Care Teams Director Internal Communications Relationship Specialty Start Date End Date Anh Miles MD [address] [phone] PCP - General Family Practice 09/22/13 documented as of this encounter
--- OUTSIDE RECORDS SUMMARY | 2025-03-27 19:20 | XMS_ITS | Encounter Summary ---
Author Organization [facility] Address [address] [place] [address] Care Team Providers Care Environmental Protection Officer Name Role Phone Anh Miles MD Primary Care Provider Encounter Details Date Type Department Care Team (Latest Contact Info) Description 02/21/2000 Outpatient Historical [facility] Family Medicine [address] [phone] Unspecified essential hypertension (Primary Dx) Social History Tobacco Use Types Packs/Day Years Used Date Smoking Tobacco: Never Assessed Comments Unknown Sex and Gender Information Value Date Recorded Sex Assigned at Not on file Legal Sex Female 3:11 AM LINE PILOT Gender Identity Not on file Sexual Orientation Not on file documented as of this encounter Plan of Treatment Not on file documented as of this encounter Visit Diagnoses Diagnosis Unspecified essential hypertension- Primary documented in this encounter Care Teams Environmental Protection Officer Relationship Specialty Start Date End Date Anh Miles MD [address] [address] PCP - General Family Practice 09/22/13 documented as of this encounter
--- OUTSIDE RECORDS SUMMARY | 2025-03-27 19:20 | XMS_ITS | Encounter Summary ---
Author Organization [facility] Address [address] [place] [address] Care Team Providers Care Wicker Worker Name Role Phone Anh Miles MD Primary Care Provider Encounter Details Date Type Department Care Team (Latest Contact Info) Description 07/19/2001 Outpatient Historical [facility] [address] [place] [phone] Benign hypertension (Primary Dx); DERMATITIS OTHER NEC Social History Tobacco Use Types Packs/Day Years Used Date Smoking Tobacco: Never Assessed Comments Unknown Sex and Gender Information Value Date Recorded Sex Assigned at Not on file Legal Sex Female 3:11 AM SLUSHER OPERATOR Gender Identity Not on file Sexual Orientation Not on file documented as of this encounter Plan of Treatment Not on file documented as of this encounter Visit Diagnoses Diagnosis Benign hypertension- Primary Essential hypertension, benign Contact dermatitis and other eczema due to other specified agent documented in this encounter Care Teams Wicker Worker Relationship Specialty Start Date End Date Anh Miles MD [address] [facility] 60 [place] [address] PCP - General Family Practice 09/22/13 documented as of this encounter
--- OUTSIDE RECORDS SUMMARY | 2025-03-27 19:20 | XMS_ITS | Encounter Summary ---
Author Organization [facility] Address [address] [place] [address] Care Team Providers Care Inspector Integrated Circuits Name Role Phone Anh Miles MD Primary Care Provider Encounter Details Date Type Department Care Team (Latest Contact Info) Description 07/24/2005 Outpatient Historical [facility] [address] [place] [phone] CONJUNCTIVITIS NEC (Primary Dx) Social History Tobacco Use Types Packs/Day Years Used Date Smoking Tobacco: Never Assessed Comments Unknown Sex and Gender Information Value Date Recorded Sex Assigned at Not on file Legal Sex Female 3:11 AM KENO WRITER Gender Identity Not on file Sexual Orientation Not on file documented as of this encounter Plan of Treatment Not on file documented as of this encounter Visit Diagnoses Diagnosis Other conjunctivitis- Primary documented in this encounter Care Teams Inspector Integrated Circuits Relationship Specialty Start Date End Date Anh Miles MD [address] [place] [phone] PCP - General Family Practice 09/22/13 documented as of this encounter
--- OUTSIDE RECORDS SUMMARY | 2025-03-27 19:20 | XMS_ITS | Encounter Summary ---
Author Organization [facility] Address [address] [place] [address] Care Team Providers Care Life Insurance Underwriter Name Role Phone Anh Miles MD Primary Care Provider Encounter Details Date Type Department Care Team (Latest Contact Info) Description 12/20/2004 Outpatient Historical [facility] [address] [place] [address] SURGERY FOLLOWUP, UNSPEC (Primary Dx); UTERINE LEIOMYOMA NOS; OVARIAN CYST NEC/NOS; FEM PELV PERITON ADHES POSTOP/INFEC Social History Tobacco Use Types Packs/Day Years Used Date Smoking Tobacco: Never Assessed Comments Unknown Sex and Gender Information Value Date Recorded Sex Assigned at Not on file Legal Sex Female 3:11 AM LINTER OPERATOR Gender Identity Not on file Sexual Orientation Not on file documented as of this encounter Plan of Treatment Not on file documented as of this encounter Visit Diagnoses Diagnosis Follow-up examination, following unspecified surgery- Primary Leiomyoma of uterus, unspecified Other and unspecified ovarian cyst Pelvic peritoneal adhesions, female (postoperative) (postinfection) documented in this encounter Care Teams Life Insurance Underwriter Relationship Specialty Start Date End Date Anh Miles MD [address] [phone] PCP - General Family Practice 09/22/13 documented as of this encounter
--- OUTSIDE RECORDS SUMMARY | 2025-03-27 19:20 | XMS_ITS | Encounter Summary ---
Author Organization [facility] Address [address] [place] [address] Care Team Providers Care Paper Machine Backtender Name Role Phone Anh Miles MD Primary Care Provider [phone] Encounter Details Date Type Department Care Team (Latest Contact Info) Description 07/26/2001 Outpatient Historical [facility] [address] [place] [phone] Gynecologic examination (Primary Dx); ABDOMINAL PAIN UNSPEC SITE; TRICHINOSIS; VAGINITIS NOS Social History Tobacco Use Types Packs/Day Years Used Date Smoking Tobacco: Never Assessed Comments Unknown Sex and Gender Information Value Date Recorded Sex Assigned at Not on file Legal Sex Female 3:11 AM OPTICAL INSTRUMENT ASSEMBLY SUPERVISOR Gender Identity Not on file Sexual Orientation Not on file documented as of this encounter Plan of Treatment Not on file documented as of this encounter Visit Diagnoses Diagnosis Gynecologic examination- Primary Gynecological examination Abdominal pain, unspecified site Trichinosis Vaginitis and vulvovaginitis, unspecified documented in this encounter Care Teams Paper Machine Backtender Relationship Specialty Start Date End Date Anh Miles MD [address] [address] PCP - General Family Practice 09/22/13 documented as of this encounter
--- OUTSIDE RECORDS SUMMARY | 2025-03-27 19:20 | XMS_ITS | Encounter Summary ---
Author Organization [facility] Address [address] [place] [address] Care Team Providers Care Medical Radiation Dosimetrist Name Role Phone Anh Miles MD Primary Care Provider [phone] Encounter Details Date Type Department Care Team (Latest Contact Info) Description 11/11/2001 Outpatient Historical [facility] [address] [place] [phone] ANXIETY STATE NOS (Primary Dx) Social History Tobacco Use Types Packs/Day Years Used Date Smoking Tobacco: Never Assessed Comments Unknown Sex and Gender Information Value Date Recorded Sex Assigned at Not on file Legal Sex Female 3:11 AM ONLINE COMMUNITY MANAGER Gender Identity Not on file Sexual Orientation Not on file documented as of this encounter Plan of Treatment Not on file documented as of this encounter Visit Diagnoses Diagnosis Anxiety state, unspecified- Primary documented in this encounter Care Teams Medical Radiation Dosimetrist Relationship Specialty Start Date End Date Anh Miles MD [address] [facility] [address] [place] [address] PCP - General Family Practice 09/22/13 documented as of this encounter
--- OUTSIDE RECORDS SUMMARY | 2025-03-27 19:20 | XMS_ITS | Encounter Summary ---
Author Organization [facility] Address [address] [facility] Attn: [place] [address] Care Team Providers Care Maintenance Department Manager Name Role Phone Anh Miles MD Primary Care Provider [phone] Encounter Details Date Type Department Care Team (Late st Contact Info) Description 06/24/2000 Outpatient Historical Non-Staff, Physician NO ADDRESS ON FILE Social History Tobacco Use Types Packs/Day Years Used Date Smoking Tobacco: Never Assessed Comments Unknown Sex and Gender Information Value Date Recorded Sex Assigned at Not on file Legal Sex Female 3:11 AM JUNIOR BRAND MANAGER Gender Identity Not on file Sexual Orientation Not on file documented as of this encounter Plan of Treatment Not on file documented as of this encounter Visit Diagnoses Not on filedocumented in this encounter Care Teams Maintenance Department Manager Relationship Specialty Start Date End Date Anh Miles MD [address] [facility] [address] [place] [address] PCP - General Family Practice 09/22/13 documented as of this encounter
--- OUTSIDE RECORDS SUMMARY | 2025-03-27 19:20 | XMS_ITS | Encounter Summary ---
Author Organization [facility] Address [address] [place] [address] Care Team Providers Care Customer Training Specialist Name Role Phone Anh Miles MD Primary Care Provider [phone] Encounter Details Date Type Department Care Team (Late st Contact Info) Description 09/15/2004 Outpatient Historical [facility] Mora Mak, ONLINE MEDIA DIRECTOR [address] [place] [phone] Social History Tobacco Use Types Packs/Day Years Used Date Smoking Tobacco: Never Assessed Comments Unknown Sex and Gender Information Value Date Recorded Sex Assigned at Not on file Legal Sex Female 3:11 AM CRIMINAL JUSTICE TEACHER Gender Identity Not on file Sexual Orientation Not on file documented as of this encounter Plan of Treatment Not on file documented as of this encounter Visit Diagnoses Not on filedocumented in this encounter Care Teams Customer Training Specialist Relationship Specialty Start Date End Date Anh Miles MD [address] [facility] [address] [place] [address] PCP - General Family Practice 09/22/13 documented as of this encounter
--- OUTSIDE RECORDS SUMMARY | 2025-03-27 19:20 | XMS_ITS | Encounter Summary ---
Author Organization [facility] Address [address] [place] [address] Care Team Providers Care Recruiting Consultant Name Role Phone Anh Miles MD Primary Care Provider Encounter Details Date Type Department Care Team (Latest Contact Info) Description 08/12/2001 Outpatient Historical [facility] [address] [place] [id number] OTHER MALAISE AND FATIGUE (Primary Dx); HYPOTHYROIDISM NOS Social History Tobacco Use Types Packs/Day Years Used Date Smoking Tobacco: Never Assessed Comments Unknown Sex and Gender Information Value Date Recorded Sex Assigned at Not on file Legal Sex Female 3:11 AM FRUIT HARVESTER Gender Identity Not on file Sexual Orientation Not on file documented as of this encounter Plan of Treatment Not on file documented as of this encounter Visit Diagnoses Diagnosis Other malaise and fatigue- Primary Unspecified hypothyroidism documented in this encounter Care Teams Recruiting Consultant Relationship Specialty Start Date End Date Anh Miles MD [address] [address] PCP - General Family Practice 09/22/13 documented as of this encounter
--- OUTSIDE RECORDS SUMMARY | 2025-03-27 19:20 | XMS_ITS | Encounter Summary ---
Author Organization 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
--- OUTSIDE RECORDS SUMMARY | 2025-03-27 19:20 | XMS_ITS | Encounter Summary ---
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
--- OUTSIDE RECORDS SUMMARY | 2025-03-27 19:20 | XMS_ITS | Encounter Summary ---
Author Organization [facility] Address [address] [place] [address] Care Team Providers Care Pipe Recovery Specialist Name Role Phone Anh Miles MD Primary Care Provider Encounter Details Date Type Department Care Team (Latest Contact Info) Description 04/06/2000 Outpatient Historical [facility] [address] [phone] Unspecified essential hypertension (Primary Dx) Social History Tobacco Use Types Packs/Day Years Used Date Smoking Tobacco: Never Assessed Comments Unknown Sex and Gender Information Value Date Recorded Sex Assigned at Not on file 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
--- OUTSIDE RECORDS SUMMARY | 2025-03-27 19:20 | XMS_ITS | Encounter Summary ---
Author Organization [facility] Address [address] [place] [address] Care Team Providers Care Part Time Name Role Phone Anh Miles MD Primary Care Provider [phone] Encounter Details Date Type Department Care Team (Latest Contact Info) Description 10/26/2006 Outpatient Historical [facility] [address] [place] [address] Routine Gynecological Examination (Primary Dx) Social History Tobacco Use Types Packs/Day Years Used Date Smoking Tobacco: Never Assessed Comments Unknown Sex and Gender Information Value Date Recorded Sex Assigned at Not on file 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 [address] [place] [address] PCP - General Family Practice 09/22/13 documented as of this encounter
--- OUTSIDE RECORDS SUMMARY | 2025-03-27 19:20 | XMS_ITS | Encounter Summary ---
Author Organization [facility] Address [address] [place] [address] Care Team Providers Care Textile Dyer Name Role Phone Anh Miles MD Primary Care Provider Encounter Details Date Type Department Care Team (Latest Contact Info) Description 12/30/[address] 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
--- NOTE | 2025-03-27 19:22 | XRR_ITS ---
PROCEDURE INFORMATION: Exam: XR Chest Exam date and time: 03/27/2025 8:15 PM Age: 69 years old Clinical indication: Other: Possible food bolus in esophagus; Prior surgery; Surgery date: 6+ months; Surgery type: Hysterectomy TECHNIQUE: Imaging protocol: Radiologic exam of the chest. Views: 1 view. COMPARISON: CT chest abdpel w/*[id number] 05/10/2022 10:19 PM FINDINGS: Lungs: Unremarkable. No consolidation. Pleural spaces: Unremarkable. No pleural effusion. No pneumothorax. Heart/Mediastinum: Unremarkable. No cardiomegaly. Bones/joints: Unremarkable. XR/XR chest 1V portable [id number] IMPRESSION: No acute findings.
[2025-03-27] MEDS: glucagon 1 mg/mL KIT 1 mL IVP (20:25)
--- NOTE | 2025-03-27 20:42 | ANES.PREANE2 ---
Pre-Anesthetic Assessment Height/Weight: Height 5 ft 7 in Weight 148 lb Temp Pulse Resp BP Pulse Ox O2 Del Method 98.1 F 87 16 155/90 97 Room Air 03/27/25 19:30 03/27/25 19:30 03/27/25 19:30 03/27/25 19:30 03/27/25 19:30 03/27/25 19:30 Preop Diagnosis: Food bolus Was Beta Tom taken within 24 hours: N/A Was Clonidine taken within 24 hours: N/A Social No alcohol and No tobacco Exam alert, oriented x 3, clear to auscultation bilaterally and regular rate & rhythm Airway Submandibular: within normal limits Cervical ROM: within normal limits Mallampati: Class III Comments: Comments: Dentures Anesthetic Plan ASA status: 3E Anesthesia: General Other: Foreign body in the esophagus, was eating ham and beans and food got stuck. Has tried drinking multiple things but she keeps throwing them up No prior issues with anesthesia Hx of HTN on HCTZ GERD, prior esophageal dilation Prior EKG showing SR METS greater than 4 Plan for GETA Medications/Allergies Home Medications ?Medication ?Instructions ?Recorded ?Confirmed ?Last Taken ?Type ketoconazole 2 % topical cream 1 applic topical BID #60 grams 02/08/23 08/18/24 Unknown Rx potassium chloride 10 mEq 10 meq PO DAILY #90 tabs 06/11/24 08/18/24 Unknown Rx tablet,extended release(part/cryst) (Klor-Con M) colchicine 0.6 mg tablet 0.6 mg PO .COMPLEX #10 tabs 08/18/24 08/18/24 Unknown Rx citalopram 20 mg tablet See Rx Instructions .Route 01/05/25 Unknown Rx .COMPLEX #90 tabs hydrochlorothiazide 50 mg tablet See Rx Instructions .Route 02/04/25 Unknown Rx .COMPLEX #90 tabs Allergies Allergy/AdvReac Type Severity Reaction Status Date / Time No Known Allergies Allergy Verified 03/27/25 19:33 [facility] Anesthesia Medical History (Updated 03/27/25 @ 20:49 by Rachell Dickinson MD) Helicobacter pylori gastritis GERD (gastroesophageal reflux disease) Anxiety HTN (hypertension) Family History Father Hypertension CAD (coronary artery disease) Social History Smoking and tobacco/nicotine status: never used tobacco/nicotine Second hand smoke exposure: No Alcohol intake: never Substance/Drug Use: never Household members: spouse Housing: House Marital status: Data Anesthesia 03/27/25 21:22
--- NOTE | 2025-03-27 20:46 | W.ED.GENADLT ---
HPI - General Adult General: Chief complaint: Airway/Esophagus Foreign Body Stated complaint: somthing stuck in throat Time Seen by Provider: 03/27/25 19:46 History of Present Illness: 69-year-old female with a history of esophageal stricture and food bolus a little over a year ago who presents to the emergency room with concern for a repeat food bolus. She said she was eating some ham and it got caught. She has not been able to hold down secretions or anything else. This happened several hours ago. She was hoping it would resolve. No chest pain. No shortness of breath. Related Data Previous Rx's ?Medication ?Instructions ?Recorded ketoconazole 2 % topical cream 1 applic topical BID #60 grams 02/08/23 potassium chloride 10 mEq 10 meq PO DAILY #90 tabs 06/11/24 tablet,extended release(part/cryst) (Klor-Con M) colchicine 0.6 mg tablet 0.6 mg PO .COMPLEX #10 tabs 08/18/24 citalopram 20 mg tablet See Rx Instructions .Route 01/05/25 .COMPLEX #90 tabs hydrochlorothiazide 50 mg tablet See Rx Instructions .Route 02/04/25 .COMPLEX #90 tabs Allergies Allergy/AdvReac Type Severity Reaction Status Date / Time No Known Allergies Allergy Verified 03/27/25 19:33 Review of Systems Narrative: Constitutional symptoms: Negative except as documented in HPI. Skin symptoms: Negative except as documented in HPI. Eye symptoms: Negative except as documented in HPI. ENMT symptoms: Negative except as documented in HPI. Respiratory symptoms: Negative except as documented in HPI. Cardiovascular symptoms: Negative except as documented in HPI. Gastrointestinal symptoms: Negative except as documented in HPI. Genitourinary symptoms: Negative except as documented in HPI. Musculoskeletal symptoms: Negative except as documented in HPI. Neurologic symptoms: Negative except as documented in HPI. Psychiatric symptoms: Negative except as documented in HPI. Endocrine symptoms: Negative except as documented in HPI. [facility] ED PFS: Medical History (Updated 03/27/25 @ 20:49 by Rachell Dickinson MD) Helicobacter pylori gastritis GERD (gastroesophageal reflux disease) Anxiety HTN (hypertension) Family History Father Hypertension CAD (coronary artery disease) Social History Smoking and tobacco/nicotine status: never used tobacco/nicotine Second hand smoke exposure: No Alcohol intake: never Substance/Drug Use: never Household members: spouse Housing: House Marital status: Physical Exam Narrative: EXAM NARRATIVE: General: Alert, no acute distress. Skin: Warm, dry. Head: Normocephalic, atraumatic. Neck: Supple, trachea midline. Eye: Extraocular movements are intact. Ears, nose, mouth and throat: mucosa moist. Cardiovascular: Regular, Normal peripheral perfusion. Respiratory: Lungs are clear to auscultation, respirations are non-labored, breath sounds are equal, Symmetrical chest wall expansion. Gastrointestinal: Soft, Nontender, Non distended Musculoskeletal: Normal ROM, no deformity. Neurological: Alert and oriented, No focal neurological deficit observed. Psychiatric: Cooperative, appropriate mood & affect. Course Vital Signs: Vital signs: Vital Signs Temperature 98.1 F 03/27/25 19:30 Pulse Rate 87 03/27/25 19:30 Respiratory Rate 16 03/27/25 19:30 Blood Pressure 155/90 03/27/25 19:30 Pulse Oximetry 97 03/27/25 19:30 Oxygen Delivery Me thod Room Air 03/27/25 19:30 MDM - General Adult Medical Decision Making Medical decision making: Differential diagnosis including but not limited to and based on the above HPI, review of systems and physical exam: Patient not tolerating secretions or likely has a foreign body. We will first attempt glucagon and chin tuck swallow. Orders placed to evaluate differential diagnosis based on the above differential, HPI and physical exam Glucagon swallow did not help. She is still not tolerating secretions. Or anything else. Chest x-ray: No acute process. No infiltrate. No pneumothorax. Films were interpreted by myself the emergency room provider and pending final radiology review. Consultation: I spoke with Dr. Major who is on-call for general surgery who is calling in GI lab and will take patient to the GI lab for upper endoscopy. Assessment and plan: Food bolus -Discharge to the GI lab. - Discussed plan with patient. Answered any questions. - Evaluation and treatment of this problem were appropriate in the emergency setting. XR interpretation done by ED provider, pending radiology final review Discharge Plan Discharge Patient Disposition: Home Clinical Impression: Foreign body in esophagus Condition: Stable Prescriptions: No Action potassium chloride [Klor-Con M10] 10 mEq tablet,ER particles/crystals 10 meq PO DAILY Qty: 90 1RF colchicine 0.6 mg tablet 0.6 mg PO .COMPLEX Qty: 10 0RF Rx Instructions: Take 2 tabs now then 1 tab bid x 4 days ketoconazole 2 % cream 1 applic topical BID Qty: 60 1RF citalopram 20 mg tablet See Rx Instructions .ROUTE .COMPLEX Qty: 90 0RF Dose Instruction: TAKE 1 TABLET BY MOUTH EVERY DAY Rx Instructions: TAKE 1 TABLET BY MOUTH EVERY DAY hydrochlorothiazide 50 mg tablet See Rx Instructions .ROUTE .COMPLEX Qty: 90 0RF Dose Instruction: TAKE 1 TABLET BY MOUTH EVERY DAY Rx Instructions: TAKE 1 TABLET BY MOUTH EVERY DAY Discharge Orders: Discharge ED (Routine); Ordered 03/27/25 Ordered By: Rachell Dickinson Referrals: Mora Mak FNP [Primary Care Provider, Family Practice] Discharge Diet: As Directed Patient Instructions: Esophageal Foreign Body (ED), Opioid Safety, Pain Management, Patient Portal & Ceferino Instructions Activity Restrictions/Additional Instructions: Thank you for choosing [facility] for your healthcare needs today. You have been screened and evaluated and felt safe for discharge. Health conditions do change or evolve sometimes and as such it is important that you follow up with your Primary Doctor to be re checked, 3-5 days is a general good time frame for follow up. You are always welcome to return to the ED for re assessment if your symptoms are worsening or you have new concerns Print Language: Emirati Coding Level of Care Code ED Laundry Operator Wash Room for Charli Glynn
--- NOTE | 2025-03-27 20:59 | PM.HP ---
Providers/Chief Complaint Primary Care Provider: ANNMARIE Polk Chief Complaint: somthing stuck in throat History of Present Illness Luisana Torres is a 69 year old female Who presents to the hospital with suspected food bolus. Patient had this happen in the past about a year ago and had to have endoscopy for disimpaction. Tonight she was eating ham and beans and after that she felt something get stuck in the midesophagus and has not been able to eat since then. In the ER she received a dose of glucagon without success has not been able to tolerate secretions and is vomiting everything that she tries to drink. Review of Systems General: Reports: 10 or more systems reviewed and unremarkable except in HPI and below Medications/Allergies Home Medications ?Medication ?Instructions ?Recorded ?Confirmed ?Last Taken ?Type ketoconazole 2 % topical cream 1 applic topical BID #60 grams 02/08/23 08/18/24 Unknown Rx potassium chloride 10 mEq 10 meq PO DAILY #90 tabs 06/11/24 08/18/24 Unknown Rx tablet,extended release(part/cryst) (Klor-Con M) colchicine 0.6 mg tablet 0.6 mg PO .COMPLEX #10 tabs 08/18/24 08/18/24 Unknown Rx citalopram 20 mg tablet See Rx Instructions .Route 01/05/25 Unknown Rx .COMPLEX #90 tabs hydrochlorothiazide 50 mg tablet See Rx Instructions .Route 02/04/25 Unknown Rx .COMPLEX #90 tabs Allergies Allergy/AdvReac Type Severity Reaction Status Date / Time No Known Allergies Allergy Verified 03/27/25 19:33 PFSH Acute PFSH: Medical History (Updated 03/27/25 @ 20:49 by Rachell Dickinson MD) Helicobacter pylori gastritis GERD (gastroesophageal reflux disease) Anxiety HTN (hypertension) Family History Father Hypertension CAD (coronary artery disease) Social History Smoking and tobacco/nicotine status: never used tobacco/nicotine Second hand smoke exposure: No Alcohol intake: never Substance/Drug Use: never Household members: spouse Housing: House Marital status: Vitals/I&O/Wt Last Vital Signs Temp 98.1 F 03/27/25 19:30 Pulse 87 03/27/25 19:30 Resp 16 03/27/25 19:30 BP 155/90 03/27/25 19:30 Pulse Ox 97 03/27/25 19:30 O2 Del Method Room Air 03/27/25 19:30 03/27/25 03/27/25 03/27/25 06:59 14:59 22:59 Intake Total 0 / 0 Balance 0 / 0 Weight last 48 hrs Weight 148 lb Physical Exam Narrative: General : Patient is well developed , no acute distress, oriented x3 Head : Normal cephalic, a-traumatic. Nose : Mucous membranes are without erythema. Lungs : Equal chest rise bilaterally, no use of accessory muscles, trachea is midline. CV : Rate and rhythm are normal. Abdomen : Soft, ND, NT, no g/r/m Extremities : No edema. Upper extremities are normal bilaterally. Back : non-tender to palpation, no CVA tenderness. A&P Assessment and plan 1. Hiatal hernia without gangrene and obstruction: 2. Foreign body in esophagus: Plan: Patient presents with a food bolus impaction. EGD with retrieval of foreign body is indicated. I discussed with reason benefits of the procedure including the risk of perforation requiring surgical intervention transferred to higher level of care, risks of bleeding, mucosal tear, need for additional interventions, inability to relieve the obstruction, inability to cannulate esophagus, recurring obstruction. Injury to soft tissue of the mouth and pharynx. Patient shows understanding agrees with the plan we will proceed to the GI lab tonight for disimpaction PDMP PDMP Reviewed: Not Reviewed Attestations Medical Necessity Statement*: For possible discharge after endoscopy Coding Level of Care Code Acute Code for Chg Fwd Diagnoses Hiatal hernia without gangrene and obstruction K44.9 Foreign body in esophagus T18.108A
[2025-03-27 21:35] LABS: Hematocrit 46.9 % (36-47); Hemoglobin 16.40 g/dL (11.27-16.99); Mean Corpuscular HGB Conc 35.0 g/dL (30-55); Mean Corpuscular Hemoglobin 30.7 pg (27-33); Mean Corpuscular Volume 87.8 fl (85-98); Nucleated Red Blood Cells % 0 %; Platelet Count 327 10^3/cmm (157-399); Red Blood Count 5.34 10^6/uL (3.85-5.65); White Blood Count 9.09 10^3/uL (3.29-11.43)
== END 2025-03-27 22:47 | disposition home or self-care (01) ==
LOC: ER 20:49 → GILAB 21:24
PROVIDERS: Surgery; Emergency Provider Emergency Medicine; PCP Nurse Practitioner Family; Visit Provider Student in an Organized Health Care Education/Training Program
PROC: 0DJ08ZZ Inspection of Upper Intestinal Tract, Via Natural or Artificial Opening Endoscopic (ICD-10-PCS; principal; 2025-03-27 21:10)
DX: T18.128A Food in esophagus causing other injury, initial encounter (principal); K44.9 Diaphragmatic hernia without obstruction or gangrene; W44.F3XA Food entering into or through a natural orifice, initial encounter; I10 Essential (primary) hypertension; K21.9 Gastro-esophageal reflux disease without esophagitis; Z79.899 Other long term (current) drug therapy
CPT/HCPCS: 43247; 71045; 85025; 96374; 99285; J0330; J1100; J1610; J2405; J2704; J3010; J7030; J9999